=== PATIENT | female | born 1955 | race Caucasian/White ===

== ENCOUNTER 2024-04-29 20:47 | Emergency (ER) | payer OTHER ==
--- OUTSIDE RECORDS SUMMARY | 2024-04-29 20:54 | XMS REPORT | Continuity of Care Document ---
Author Name Unknown Address [address] [facility] [address] [place] [address] [facility] [address] [facility] 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 Role Phone Savannah Webster Primary Care Physician [phone] LUZ MARINA DALY Attending Clinician Unava Vivek Moss MD Attending Clinician [phone] RICHARD JOHNSON Attending Clinician Unavailable RICHARD JOHNSON Attending Clinician Unavailable RIC PADRON Attending Clinician Unavailable RIC PADRON Attending Clinician Unavailable Pedro Caceres DO Attending Clinician [phone] Richadr Johnson DO Attending Clinician [phone] Aletha Pryor MD Attending Clinician [phone] Doctor Unassigned, [place] Attending Clinician U navailkimmie Sampson RTDorita C Attending Clinician Unavailab rizwana Therapist, [facility] Attending Clinician Sofie Cassius Angel MD Attending Clinician + [phone] CASSIUS CHAU Attending Clinician UnavailCHANDRIKA Solis Attending Clinician Unava Chandrika Dawn MD Attending Clinician [phone] Cary Villalobos RN Attending Clinician Unavailab le Only, Ang Db Test Attending Clinician UnavailJuliana Benedict Attending Clinician [phone] TRAVIS FREEDMAN III Attending Clinician UnavailAnni Butler MD Attending Clinician [phone] ANNI JEROME Attending Clinician Unavailable Nurse, [facility] Pob Immunization Attending Clinician Unavailable Jack Naqvi DO Attending Clinician Only, Adc Test Attending Clinician Unavailable Ivone Fowler Attending Clinician Unavailable RADHA PALMA Attending Clinician Unavailable LUZ MARINA DALY Admitting Clinician RIC Parmar Admitting Clinician Unavailable RICHARD JOHNSON Admitting Clinician Unavailable Payers Payer Name Policy Type Policy Number Effective Date Expirati on Date Source MEDICARE PART A \\T\\ [id number] 2020 00:00:00 Problems Condition Name Condition Details Condition Category Status Onset Date Resolution Date Last Treatment Date Treating Clinician Comments Source 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 2- 00:00: 00 [facility] Cough, unspecifie d type Cough, unspecifie d type Disease Active 1 00:00: 00 [facility] No known active problems No known active problems Disease [facility] Allergies, Adverse Reactions, Alerts Allergy Name Allergy Type Status Severity Reaction(s) Onset Date Inactive Date Treating Clinician Comments Source NO KNOWN ALLERGIE S Drug Class Active [facility] Social History Social Habit Start Date Stop Date Quantity Comments Source History of tobacco use 1971 00:00:00 Cigarette Smoker [facility] Gender identity [facility] Sexual orientation [facility] Alcohol intake 2023-10-17 00:00:00 2023-10-17 00:00:00 .29 /d [facility] History of Social function 2023-10-16 00:00:00 2023-10-16 00:00:00 [facility] Exposure to SARS-CoV-2 (event) 2022-07-04 00:00:00 2022-07-14 11:29:00 Not sure [facility] Cigarettes smoked current (pack per day) - Reported 2022-07-14 00:00:00 2022-07-14 00:00:00 [facility] Cigarette pack-years 2022-07-14 00:00:00 2022-07-14 00:00:00 [facility] Tobacco use and exposure 2022-07-14 00:00:00 2022-07-14 00:00:00 Smokeless tobacco non-user [facility] Sex Ass[birth year] At 1955 00:00:00 1955 00:00:00 [facility] Smoking Status Start Date Stop Date Source Smokes tobacco daily 2022-07-14 00:00:00 [facility] Medications Ordered Medication Name Filled Medication Name Start Date Stop Date Current Medication? Ordering Clinician Indication Dosage Frequency Signature (SIG) Comments Components Source Celebrex 200 mg capsule 04-12 00:00: 00 Yes 1mg Mulugeta Cortez levothyroxi ne 50 mcg tablet 04-11 00:00: 00 Yes 1mcg Mulugeta Cortez levothyroxi ne 25 mcg tablet 03-01 00:00: 00 Yes 1mcg Mulugeta Cortez levothyroxi ne 50 mcg tablet 02-19 00:00: 00 Yes 1mcg Mulugeta Cortez methocarbam ol 750 mg tablet 01-30 00:00: 00 Yes 1mg Mulugeta Cortez diclofenac 1 % topical gel 01-28 00:00: 00 Yes 1% Mulugeta Cortez diclofenac sodium 75 mg tablet,ellen yed release 01-28 00:00: 00 Yes 1mg Mulugeta Cortez Symbicort 160 mcg-4.5 mcg/actuati on HFA aerosol inhaler 11-07 00:00: 00 Yes 1mcg/ac tuation Mulugeta Cortez amlodipine 10 mg tablet 11-07 00:00: 00 Yes 1mg Mulugeta Cortez metoprolol succinate ER 50 mg tablet,exte nded release 24 hr 11-07 00:00: 00 Yes 1mg Mulugeta Cortez hydroxyzine HCl 25 mg tablet 11-07 00:00: 00 Yes 12mg Mulugeta Cortez azithromyci n 250 mg tablet 11-07 00:00: 00 Yes 1mg Mulugeta Cortez levothyroxi ne 50 mcg tablet 11-07 00:00: 00 Yes 1mcg Mulugeta Cortez Spiriva with HandiHaler 18 mcg and inhalation capsules 11-07 00:00: 00 Yes 1mcg Mulugeta Cortez INHALE 2 PUFFS EVERY 4 TO 6 HOURS NEEDED. 11-07 00:00: 00 Yes [id number] Mulugeta Cortez lactated ringers IV infusion 10-16 15:55: 00 Yes CONTINUOUS PRN, Starting on Sun10/16/23 at 0955, Until Discontinu ed, Routine, Intra-op [facility] tiZANidine 4 mg capsule 10-16 10:29: 09 Yes 4mg Take 1 capsule by mouth in the morning and 1 capsule at noon and 1 capsule in the evening. [facility] gabapentin 300 mg capsule 10-16 10:29: 09 Yes 300mg Take 300 mg by mouth 3 (three) times daily. [facility] HYDROcodone -acetaminop hen 10-325 mg tablet 10-16 10:29: 09 Yes 1{tbl} Take 1 tablet by mouth every 6 (six) hours as needed. [facility] metoprolol succinate XL 25 mg 24 hr tablet 10-16 10:29: 09 Yes 25mg Take 1 tablet by mouth in the morning. [facility] predniSONE 20 mg tablet 09-20 00:00: 00 09-26 05:59 :00 No [id number] 40mg Take 2 tablets by mouth in the morning for 5 days. [facility] TAKE 1 TABLET BY MOUTH DAILY 09-13 00:00: 00 01-06 00:00 :00 No 20 Mluugeta Cortez TAKE 1 TABLET EVERY 8 HOURS NEEDED. 09-13 00:00: 00 01-06 00:00 :00 No 800 Mulugeta Cortez TAKE 1 TABLET DAILY. 09-11 00:00: 00 01-06 00:00 :00 No 50 Mulugeta Cortez TAKE 1 TABLET DAILY. 2022-09 00:00: 00 01-06 00:00 :00 No 25 Mulugeta Cortez TAKE 1 TABLET DAILY. 2022-09 00:00: 00 Yes 25 Mulugeta Cortez TAKE 1 TABLET BY MOUTH AT BEDTIME 2022-09 00:00: 00 Yes 20 Mulugeta Jl Cortez 1 tab daily 2022-09 00:00: 00 Yes 25 Mulugeta Cortez inhale 2 puffs2 times daily 2022-09 00:00: 00 Yes [id number] Mulugeta Cortez 2 puffs every 6 hours as needed 2022-09 00:00: 00 Yes [id number] Mulugeta Cortez inhale capsule 1 daily 2022-09 00:00: 00 Yes 18 Mulugeta Cortez take 1 tablet by mouth every Sunday and 2022-09 00:00: 00 Yes 250 Mulugeta Jl Cortez INHALE 2 PUFFS TWICE DAILY. RINSE MOUTH AFTER USE. 2022-09 00:00: 00 Yes [id number] Mulugeta Cortez TAKE 1 TO 2 TABLETS AT BEDTIME 2022-09 00:00: 00 01-06 00:00 :00 No 25 Mulugetajuan alberto Cortez TAKE 1 TABLET EVERY 8 HOURS NEEDED. 2022-09 00:00: 00 01-06 00:00 :00 No 800 Mulugeta Jl Cortez TAKE ONE TABLETS BY MOUTH EVERY SUNDAY, SUNDAY, AND 2022-09 00:00: 00 01-06 00:00 :00 No 500 Mulugeta Cortez INHALE 2 PUFFS EVERY 4 TO 6 HOURS NEEDED. 2022-09 00:00: 00 01-06 00:00 :00 No [id number] Mulugeta Cortez TAKE 1 TABLET BY MOUTH AT BEDTIME 05-03 00:00: 00 01-06 00:00 :00 No 20 Mulugeta Jl Cortez TAKE 1 TO 2 TABLETS BY MOUTH AT BEDTIME 04-06 00:00: 00 01-06 00:00 :00 No 25 Mulugeta Jl Cortez TAKE 1 TABLET BY MOUTH DAILY 04-05 00:00: 00 01-06 00:00 :00 No 50 Mulugeta Jl Cortez TAKE 1 TABLET BY MOUTH DAILY 04-05 00:00: 00 01-06 00:00 :00 No 10 Mulugeta Jl Cortez TAKE 1 TABLET DAILY. 6-22 00:00: 00 01-06 00:00 :00 No 25 Mulugeta F Diego TAKE 1 TO 2 TABLETS BY MOUTH AT BEDTIME 621 00:00: 00 01-06 00:00 :00 No 25 Mulugeta F Diego TAKE 1 TABLET BY MOUTH AT BEDTIME 16 00:00: 00 01-06 00:00 :00 No 20 Mulugeta F Diego TAKE 1 TABLET BY MOUTH DAILY 02-16 00:00: 00 01-06 00:00 :00 No 10 Mulugeta F Diego TAKE 1 TABLET BY MOUTH DAILY 02-16 00:00: 00 01-06 00:00 :00 No 50 Mulugeta F Diego tiotropium 18 mcg inhalation 02-08 00:00: 00 Yes [id number] 18ug Inhale 1 capsule in the morning. [facility] budesonide- formoteroL (SYMBICORT) 160-4.5 mcg/actuati on inhaler 02-05 00:00: 00 Yes [id number] 2{puff} Inhale 2 Puffs in the morning and 2 Puffs in the evening. [facility] TAKE 1 CAPSULE BY MOUTH ONCE DAILY 5-31 00:00: 00 01-06 00:00 :00 No 10 Mulugeta Jl Cortez TAKE 1 TO 2 TABLETS AT BEDTIME 12-20 00:00: 00 01-06 00:00 :00 No 25 Mulugeta Jl Cortez TAKE 1 TABLET AT BEDTIME. 12-20 00:00: 00 01-06 00:00 :00 No 20 Mulugeta F Diego TAKE 1 CAPSULE BY MOUTH EVERY MORNING BEFORE BREAKFAST ON EMPTY STOMACH 19 00:00: 00 01-06 00:00 :00 No 13 Mulugeta F Diego albuterol (PROAIR HFA) 90 mcg/actuati on inhaler 18 00:00: 00 Yes [id number] INHALE 2 PUFFS BY MOUTH EVERY 6 (SIX) HOURS NEEDED FOR WHEEZING OR SHORTNESS OF BREATH. [facility] TAKE 1 TABLET BY MOUTH DAILY 4-14 00:00: 00 01-06 00:00 :00 No 10 uMlugeta Cortez TAKE 1 TABLET AT BEDTIME. 3-07 00:00: 00 01-06 00:00 :00 No 20 Mulugetajuan alberto Cortez TAKE 1 TO 2 TABLETS AT BEDTIME 3-07 00:00: 00 01-06 00:00 :00 No 25 Mulugetajuan alberto Cortez TAKE 1 TABLET DAILY. 3-07 00:00: 00 01-06 00:00 :00 No 50 Mulugeta Cortez TAKE 1 TABLET DAILY. 2- 00:00: 00 01-06 00:00 :00 No 10 Mulugeta Cortez TAKE 1 TABLET TWICE DAILY. 2- 00:00: 00 01-06 00:00 :00 No 50 Mulugeta Cortez TAKE 3 CAPSULES AT BEDTIME. 2- 00:00: 00 01-06 00:00 :00 No 20 Mulugetajuan alberto Cortez TAKE 1 TABLET TWICE DAILY. 2021-09 00:00: 00 01-06 00:00 :00 No 25 Mulugeta Cortez TAKE 1 CAPSULE EVERY MORNING. 2021-09 00:00: 00 01-06 00:00 :00 No 20 Mulugeta Cortez TAKE 1 TABLET DAILY. 2021-09 00:00: 00 01-06 00:00 :00 No 5 Mulugeta Cortez sodium chloride (HYPER-LATRICE) 3.5 % Nebu 2021-09 00:00: 00 Yes [id number] 4mL Inhale 4 mL 2 (two) times daily. [facility] arformotero L (BROVANA) 15 mcg/2 mL nebulizer solution 2021-09 00:00: 00 Yes [id number] 15ug Use 2 mL as directed in the morning and 2 mL in the evening. [facility] budesonide (PULMICORT) 0.25 mg/2 mL nebulizer solution 2021-09 00:00: 00 Yes [id number] .25mg Inhale 2 mL in the morning and 2 mL in the evening. [facility] ipratropium -albuteroL 0.5 mg-3 mg(2.5 mg base)/3 mL nebulizer solution 2021-09 00:00: 00 02-08 00:00 :00 No [id number] 3mL Inhale 3 mL 4 (four) times daily. [facility] AZITHROMYCI N 250 mg tablet 2021-09 00:00: 00 Yes [id number] TAKE 1 TABLET BY MOUTH ON SUNDAY, SUNDAY AND SUNDAY [facility] losartan 25 mg tablet 02-23 00:00: 00 Yes 1mg Mulugeta Cortez metoprolol tartrate 25 mg tablet 02-23 00:00: 00 Yes 1mg Mulugeta Cortez cyclobenzap rine 5 mg tablet 02-23 00:00: 00 Yes 1mg Mulugeta Cortez Celebrex 200 mg capsule 02-23 00:00: 00 Yes 1mg Mulugeta Cortez Dose Unknown 02-23 00:00: 00 Yes Mulugeta Cortez Dose Unknown 02-23 00:00: 00 Yes Mulugeta Cortez Dose Unknown 02-23 00:00: 00 Yes Mulugeta Cortez Dose Unknown 02-23 00:00: 00 Yes Mulugeta Cortez Dose Unknown 6-14 00:00: 00 Yes Mulugeta Cortez tiZANidine 4 mg capsule 01-12 10:20: 49 Yes 4mg Take 4 mg by mouth 3 (three) times daily. [facility] HYDROcodone -acetaminop hen 10-325 mg tablet 01-12 10:20: 49 Yes 1{tbl} Take 1 tablet by mouth every 6 (six) hours as needed. [facility] metoprolol succinate XL 25 mg 24 hr tablet 01-12 10:20: 49 Yes 25mg Take 25 mg by mouth daily. [facility] sodium chloride (HYPER-LATRICE) 3.5 % Nebu 01-12 00:00: 00 Yes [id number] 4mL Inhale 4 mL 2 (two) times daily. [facility] albuterol 2.5 mg /3 mL (0.083 %) nebulizer solution 5-12 00:00: 00 Yes [id number] 2.5mg Inhale 3 mL 2 (two) times daily. [facility] TAKE 1 TABLET BY MOUTH EVERY 6 HOURS NEEDED FOR PAIN 505 00:00: 00 Yes Mulugeta Cortez tiotropium 18 mcg inhalation - 00:00: 00 02-08 00:00 :00 No [id number] 18ug Inhale 1 capsule daily. [facility] albuterol (PROAIR HFA) 90 mcg/actuati on inhaler 12-05 00:00: 00 12-19 00:00 :00 No [id number] 2{puff} Inhale 2 Puffs every 6 (six) hours as needed for Wheezing or Shortness of Breath. [facility] budesonide- formoteroL 160-4.5 mcg/actuati on inhaler 12-05 00:00: 00 06-23 00:00 :00 No [id number] 2{puff} Inhale 2 Puffs 2 (two) times daily. [facility] gabapentin 300 mg capsule 3-02 14:35: 52 Yes 300mg Take 300 mg by mouth 3 (three) times daily. [facility] benzonatate (TESSALON PERLES) 100 mg capsule 2-03 00:00: 00 Yes [id number] 100mg Take 1 capsule by mouth 3 (three) times daily as needed for Cough. [facility] azithromyci n 250 mg tablet 2020-09 0- 00:00: 00 06-22 00:00 :00 No [id number] 250mg Take 1 tablet by mouth every Sunday, Sunday and Sunday. Take 500 mg day 1, then 250 mg days 2 to 5. [facility] losartan 25 mg tablet 7- 00:00: 00 Yes 1mg Mulugeta Cortez prednisone 20 mg tablet 03-08 00:00: 00 Yes 2mg Mulugeta Cortez metoprolol tartrate 25 mg tablet 03-08 00:00: 00 Yes 1mg Mulugeta Cortez amoxicillin 875 mg-potassiu poornima clavulanate 125 mg tablet 03-08 00:00: 00 Yes 1mg Mulugeta Cortez Dose Unknown 03-08 00:00: 00 Yes Mulugeta Cortez metoprolol tartrate 25 mg tablet 12-10 00:00: 00 Yes 1mg Mulugeta Cortez prednisone 20 mg tablet 2019-09 00:00: 00 Yes 2mg Mulugeta Cortez Zithromax 250 mg tablet 2019-09 00:00: 00 Yes mg Mulugeta Cortez Dose Unknown 2019-09 00:00: 00 Yes Mulugeta Cortez Symbicort 160 mcg-4.5 mcg/actuati on HFA aerosol inhaler 2019-09 0 00:00: 00 Yes 2mcg/ac tuation Mulugeta Cortez ProAir HFA 90 mcg/actuati on aerosol inhaler 2019-09 0 00:00: 00 Yes 2mcg/ac tuation Mulugeta Cortez losartan 50 mg tablet 2019-09 0 00:00: 00 Yes 1mg Mulugeta Cortez prednisone 50 mg tablet 2019-09 0 00:00: 00 Yes 1mg Mulugeta Cortez hydrochloro thiazide 12.5 mg tablet 2019-09 0 00:00: 00 Yes 1mg Mulugeta Cortez metoprolol tartrate 25 mg tablet 2019-09 0 00:00: 00 Yes 1mg Mulugeta Cortez ondansetron 8 mg disintegrat ing tablet 04-30 00:00: 00 Yes 1mg Mulugeta Cortez Symbicort 160 mcg-4.5 mcg/actuati on HFA aerosol inhaler 8 00:00: 00 Yes 2mcg/ac tuation Mulugeta Cortez ProAir HFA 90 mcg/actuati on aerosol inhaler 8 00:00: 00 Yes 2mcg/ac tuation Mulugeta Cortez Symbicort 160 mcg-4.5 mcg/actuati on HFA aerosol inhaler 2020-0 4-18 00:00: 00 Yes 2mcg/ac tuation Mulugeta Cortez ProAir HFA 90 mcg/actuati on aerosol inhaler 0 4-18 00:00: 00 Yes 2mcg/ac tuation Mulugeta Cortez losartan 50 mg tablet 0 4-18 00:00: 00 Yes 1mg Mulugeta Cortez metoprolol tartrate 25 mg tablet 2019-0 4-18 00:00: 00 Yes 1mg Mulugeta Cortez Symbicort 160 mcg-4.5 mcg/actuati on HFA aerosol inhaler 0 2-19 00:00: 00 Yes 2mcg/ac tuation Mulugeta Cortez ProAir HFA 90 mcg/actuati on aerosol inhaler 0 2-19 00:00: 00 Yes 2mcg/ac nathalyation Mulugeta Cortez prednisone 50 mg tablet 0 2-19 00:00: 00 Yes 1mg Mulugeta Cortez metoprolol tartrate 25 mg tablet 0 2-18 00:00: 00 Yes 1mg Mulugeta Cortez alprazolam 0.25 mg tablet 0 2-18 00:00: 00 Yes 1mg Mulugeta Cortez tizanidine 4 mg tablet 0 2-18 00:00: 00 Yes 1mg Mulugeta Cortez hydrocodone 10 mg-acetamin ophen 325 mg tablet 0 2-18 00:00: 00 Yes 1mg Mulugeta Cortez Immunizations Ordered Immunization Name Filled Immunization Name Date Status Comments Source Influenza Virus Vaccine,quad Im,preserve Free 2022-07-14 00:00:00 Completed [facility] Influenza Virus Vaccine,quad Im,preserve Free 2022-07-14 00:00:00 Completed [facility] Influenza Virus Vaccine,quad Im,preserve Free + 2022-07-14 00:00:00 Completed [facility] Influenza Virus Vaccine,quad Im,preserve Free 2022-07-14 00:00:00 Completed [facility] Influenza Virus Vaccine,quad Im,preserve Free 2022-07-14 00:00:00 Completed [facility] Influenza Virus Vaccine,quad Im,preserve Free 2022-07-14 00:00:00 Completed [facility] Influenza Virus Vaccine,quad Im,preserve Free + 2022-07-14 00:00:00 Completed [facility] Influenza Virus Vaccine,quad Im,preserve Free 65+ 2022-07-14 00:00:00 Completed [facility] Influenza Virus Vaccine,quad Im,preserve Free 65+ 2022-07-14 00:00:00 Completed [facility] Influenza Virus Vaccine,quad Im,preserve Free 65+ (FLUAD) 2022-07-14 00:00:00 Completed [facility] Influenza Virus Vaccine,quad Im,preserve Free 65+ (FLUAD) 2022-07-14 00:00:00 Completed [facility] SARS-COV-2 COVID-19 MODERNA 0.25ML BOOSTER VACCINE 2021-10-03 00:00:00 Completed [facility] SARS-COV-2 COVID-19 MODERNA 0.25ML BOOSTER VACCINE 2021-10-03 00:00:00 Completed [facility] SARS-COV-2 COVID-19 MODERNA 0.25ML BOOSTER VACCINE 2021-10-03 00:00:00 Completed [facility] SARS-COV-2 COVID-19 MODERNA 0.25ML BOOSTER VACCINE 2021-10-03 00:00:00 Completed [facility] SARS-COV-2 COVID-19 MODERNA 0.25ML BOOSTER VACCINE 2021-10-03 00:00:00 Completed [facility] SARS-COV-2 COVID-19 MODERNA 0.25ML BOOSTER VACCINE 2021-10-03 00:00:00 Completed [facility] SARS-COV-2 COVID-19 MODERNA 0.25ML BOOSTER VACCINE 2021-10-03 00:00:00 Completed [facility] SARS-COV-2 COVID-19 MODERNA 0.25ML BOOSTER VACCINE 2021-10-03 00:00:00 Completed [facility] SARS-COV-2 COVID-19 MODERNA 0.25ML BOOSTER VACCINE 2021-10-03 00:00:00 Completed [facility] SARS-COV-2 COVID-19 MODERNA 0.25ML BOOSTER VACCINE 2021-10-03 00:00:00 Completed [facility] SARS-COV-2 COVID-19 MODERNA 0.25ML BOOSTER VACCINE 2021-10-03 00:00:00 Completed [facility] SARS-COV-2 COVID-19 MODERNA 0.25ML BOOSTER VACCINE 2021-10-03 00:00:00 Completed [facility] SARS-COV-2 COVID-19 MODERNA 0.25ML BOOSTER VACCINE 2021-10-03 00:00:00 Completed [facility] SARS-COV-2 COVID-19 MODERNA 0.25ML BOOSTER VACCINE 2021-10-03 00:00:00 Completed [facility] SARS-COV-2 COVID-19 MODERNA 0.25ML BOOSTER VACCINE 2021-10-03 00:00:00 Completed [facility] SARS-COV-2 COVID-19 MODERNA 0.25ML BOOSTER VACCINE 2021-10-03 00:00:00 Completed [facility] SARS-COV-2 COVID-19 MODERNA 0.25ML BOOSTER VACCINE 2021-10-03 00:00:00 Completed [facility] SARS-COV-2 COVID-19 MODERNA 0.25ML BOOSTER VACCINE 2021-10-03 00:00:00 Completed [facility] SARS-COV-2 COVID-19 MODERNA 0.25ML BOOSTER VACCINE 2021-10-03 00:00:00 Completed [facility] SARS-COV-2 COVID-19 MODERNA 0.25ML BOOSTER VACCINE 2021-10-03 00:00:00 Completed [facility] SARS-COV-2 COVID-19 MODERNA 0.25ML BOOSTER VACCINE 2021-10-03 00:00:00 Completed [facility] Influenza Virus Vaccine Quad IM, Preserv and ABX Free 6 MO-64 YRS 2021-08-04 00:00:00 Completed [facility] Influenza Virus Vaccine Quad IM, Preserv and ABX Free 6 MO-64 YRS 2021-08-04 00:00:00 Completed [facility] Influenza Virus Vaccine Quad IM, Preserv and ABX Free 6 MO-64 YRS 2021-08-04 00:00:00 Completed [facility] Influenza Virus Vaccine Quad IM, Preserv and ABX Free 6 MO-64 YRS 2021-08-04 00:00:00 Completed [facility] Influenza Virus Vaccine Quad IM, Preserv and ABX Free 6 MO-64 YRS 2021-08-04 00:00:00 Completed [facility] Influenza Virus Vaccine Quad IM, Preserv and ABX Free 6 MO-64 YRS 2021-08-04 00:00:00 Completed [facility] Influenza Virus Vaccine Quad IM, Preserv and ABX Free 6 MO-64 YRS 2021-08-04 00:00:00 Completed [facility] Influenza Virus Vaccine Quad IM, Preserv and ABX Free 6 MO-64 YRS 2021-08-04 00:00:00 Completed [facility] Influenza Virus Vaccine Quad IM, Preserv and ABX Free 6 MO-64 YRS 2021-08-04 00:00:00 Completed [facility] Influenza Virus Vaccine Quad IM, Preserv and ABX Free 6 MO-64 YRS 2021-08-04 00:00:00 Completed [facility] Influenza Virus Vaccine Quad IM, Preserv and ABX Free 6 MO-64 YRS (FLUCELVAX) 2021-08-04 00:00:00 Completed [facility] Influenza Virus Vaccine Quad IM, Preserv and ABX Free 6 MO-64 YRS (FLUCELVAX) 2021-08-04 00:00:00 Completed [facility] Influenza Virus Vaccine Quad IM, Preserv and ABX Free 6 MO-64 YRS 2021-08-04 00:00:00 Completed [facility] Influenza Virus Vaccine Quad IM, Preserv and ABX Free 6 MO-64 YRS 2021-08-04 00:00:00 Completed [facility] Influenza Virus Vaccine Quad IM, Preserv and ABX Free 6 MO-64 YRS 2021-08-04 00:00:00 Completed [facility] Influenza Virus Vaccine Quad IM, Preserv and ABX Free 6 MO-64 YRS 2021-08-04 00:00:00 Completed [facility] Influenza Virus Vaccine Quad IM, Preserv and ABX Free 6 MO-64 YRS 2021-08-04 00:00:00 Completed [facility] Influenza Virus Vaccine Quad IM, Preserv and ABX Free 6 MO-64 YRS 2021-08-04 00:00:00 Completed [facility] Influenza Virus Vaccine Quad IM, Preserv and ABX Free 6 MO-64 YRS 2021-08-04 00:00:00 Completed [facility] Influenza Virus Vaccine Quad IM, Preserv and ABX Free 6 MO-64 YRS 2021-08-04 00:00:00 Completed [facility] Influenza Virus Vaccine Quad IM, Preserv and ABX Free 6 MO-64 YRS 2021-08-04 00:00:00 Completed [facility] SARS-COV-2 COVID-19 MODERNA 12+ YRS VACCINE 2021-01-05 00:00:00 Completed [facility] SARS-COV-2 COVID-19 MODERNA 12+ YRS VACCINE 2021-01-05 00:00:00 Completed [facility] SARS-COV-2 COVID-19 MODERNA 12+ YRS VACCINE 2021-01-05 00:00:00 Completed [facility] SARS-COV-2 COVID-19 MODERNA 12+ YRS VACCINE 2021-01-05 00:00:00 Completed [facility] SARS-COV-2 COVID-19 MODERNA 12+ YRS VACCINE 2021-01-05 00:00:00 Completed [facility] SARS-COV-2 COVID-19 MODERNA 12+ YRS VACCINE 2021-01-05 00:00:00 Completed [facility] SARS-COV-2 COVID-19 MODERNA 12+ YRS VACCINE 2021-01-05 00:00:00 Completed [facility] SARS-COV-2 COVID-19 MODERNA 12+ YRS VACCINE 2021-01-05 00:00:00 Completed [facility] SARS-COV-2 COVID-19 MODERNA 12+ YRS VACCINE 2021-01-05 00:00:00 Completed [facility] SARS-COV-2 COVID-19 MODERNA 12+ YRS VACCINE 2021-01-05 00:00:00 Completed [facility] SARS-COV-2 COVID-19 MODERNA 12+ YRS VACCINE 2021-01-05 00:00:00 Completed [facility] SARS-COV-2 COVID-19 MODERNA 12+ YRS VACCINE 2021-01-05 00:00:00 Completed [facility] SARS-COV-2 COVID-19 MODERNA VACCINE 2021-01-05 00:00:00 Completed [facility] SARS-COV-2 COVID-19 MODERNA VACCINE 2021-01-05 00:00:00 Completed [facility] SARS-COV-2 COVID-19 MODERNA VACCINE 2021-01-05 00:00:00 Completed [facility] SARS-COV-2 COVID-19 MODERNA 12+ YRS VACCINE 2021-01-05 00:00:00 Completed [facility] SARS-COV-2 COVID-19 MODERNA 12+ YRS VACCINE 2021-01-05 00:00:00 Completed [facility] SARS-COV-2 COVID-19 MODERNA 12+ YRS VACCINE 2021-01-05 00:00:00 Completed [facility] SARS-COV-2 COVID-19 MODERNA 12+ YRS VACCINE 2021-01-05 00:00:00 Completed [facility] SARS-COV-2 COVID-19 MODERNA 12+ YRS VACCINE 2021-01-05 00:00:00 Completed [facility] SARS-COV-2 COVID-19 MODERNA 12+ YRS VACCINE 2021-01-05 00:00:00 Completed [facility] SARS-COV-2 COVID-19 MODERNA 12+ YRS VACCINE 2020-12-08 00:00:00 Completed [facility] SARS-COV-2 COVID-19 MODERNA 12+ YRS VACCINE 2020-12-08 00:00:00 Completed [facility] SARS-COV-2 COVID-19 MODERNA 12+ YRS VACCINE 2020-12-08 00:00:00 Completed [facility] SARS-COV-2 COVID-19 MODERNA 12+ YRS VACCINE 2020-12-08 00:00:00 Completed [facility] SARS-COV-2 COVID-19 MODERNA 12+ YRS VACCINE 2020-12-08 00:00:00 Completed [facility] SARS-COV-2 COVID-19 MODERNA 12+ YRS VACCINE 2020-12-08 00:00:00 Completed [facility] SARS-COV-2 COVID-19 MODERNA 12+ YRS VACCINE 2020-12-08 00:00:00 Completed [facility] SARS-COV-2 COVID-19 MODERNA 12+ YRS VACCINE 2020-12-08 00:00:00 Completed [facility] SARS-COV-2 COVID-19 MODERNA 12+ YRS VACCINE 2020-12-08 00:00:00 Completed [facility] SARS-COV-2 COVID-19 MODERNA 12+ YRS VACCINE 2020-12-08 00:00:00 Completed [facility] SARS-COV-2 COVID-19 MODERNA 12+ YRS VACCINE 2020-12-08 00:00:00 [facility] [facility] SARS-COV-2 COVID-19 MODERNA 12+ YRS VACCINE 2020-12-08 00:00:00 Completed [facility] SARS-COV-2 COVID-19 MODERNA VACCINE 2020-12-08 00:00:00 Completed [facility] SARS-COV-2 COVID-19 MODERNA VACCINE 2020-12-08 00:00:00 Completed [facility] SARS-COV-2 COVID-19 MODERNA VACCINE 2020-12-08 00:00:00 Completed [facility] SARS-COV-2 COVID-19 MODERNA 12+ YRS VACCINE 2020-12-08 00:00:00 Completed [facility] SARS-COV-2 COVID-19 MODERNA 12+ YRS VACCINE 2020-12-08 00:00:00 Completed [facility] SARS-COV-2 COVID-19 MODERNA 12+ YRS VACCINE 2020-12-08 00:00:00 Completed [facility] SARS-COV-2 COVID-19 MODERNA 12+ YRS VACCINE 2020-12-08 00:00:00 Completed [facility] SARS-COV-2 COVID-19 MODERNA 12+ YRS VACCINE 2020-12-08 00:00:00 Completed [facility] SARS-COV-2 COVID-19 MODERNA 12+ YRS VACCINE 2020-12-08 00:00:00 Completed [facility] Influenza, seasonal, inj Influenza, seasonal, inj 2019-10-22 00:00:00 Completed [facility] Influenza, seasonal, inj Influenza, seasonal, inj 2019-10-22 00:00:00 Completed [facility] SARS-COV-2 COVID-19 MODERNA 12+ YRS VACCINE Unknown Completed [facility] SARS-COV-2 COVID-19 MODERNA 12+ YRS VACCINE Unknown Completed [facility] Influenza Virus Vaccine Quad IM, Preserv and ABX Free 6 MO-64 YRS (FLUCELVAX) Unknown Completed [facility] SARS-COV-2 COVID-19 MODERNA 0.25ML BOOSTER VACCINE Unknown Completed [facility] Influenza Virus Vaccine,quad Im,preserve Free 65+ (FLUAD) Unknown Completed [facility] SARS-COV-2 COVID-19 MODERNA 12+ YRS VACCINE Unknown Completed [facility] SARS-COV-2 COVID-19 MODERNA 12+ YRS VACCINE Unknown Completed [facility] Influenza Virus Vaccine Quad IM, Preserv and ABX Free 6 MO-64 YRS (FLUCELVAX) Unknown Completed [facility] SARS-COV-2 COVID-19 MODERNA 0.25ML BOOSTER VACCINE Unknown Completed [facility] Influenza Virus Vaccine,quad Im,preserve Free 65+ (FLUAD) Unknown Completed [facility] SARS-COV-2 COVID-19 MODERNA 12+ YRS VACCINE Unknown Completed [facility] SARS-COV-2 COVID-19 MODERNA 12+ YRS VACCINE Unknown Completed [facility] Influenza Virus Vaccine Quad IM, Preserv and ABX Free 6 MO-64 YRS (FLUCELVAX) Unknown Completed [facility] SARS-COV-2 COVID-19 MODERNA 0.25ML BOOSTER VACCINE Unknown Completed [facility] Influenza Virus Vaccine,quad Im,preserve Free 65+ (FLUAD) Unknown Completed [facility] SARS-COV-2 COVID-19 MODERNA 12+ YRS VACCINE Unknown Completed [facility] SARS-COV-2 COVID-19 MODERNA 12+ YRS VACCINE Unknown Completed [facility] Influenza Virus Vaccine Quad IM, Preserv and ABX Free 6 MO-64 YRS (FLUCELVAX) Unknown Completed [facility] SARS-COV-2 COVID-19 MODERNA 0.25ML BOOSTER VACCINE Unknown Completed [facility] Influenza Virus Vaccine,quad Im,preserve Free 65+ (FLUAD) Unknown Completed [facility] SARS-COV-2 COVID-19 MODERNA 12+ YRS VACCINE Unknown Completed [facility] SARS-COV-2 COVID-19 MODERNA 12+ YRS VACCINE Unknown Completed [facility] Influenza Virus Vaccine Quad IM, Preserv and ABX Free 6 MO-64 YRS (FLUCELVAX) Unknown Completed [facility] SARS-COV-2 COVID-19 MODERNA 0.25ML BOOSTER VACCINE Unknown Completed [facility] Influenza Virus Vaccine,quad Im,preserve Free 65+ (FLUAD) Unknown Completed [facility] Influenza Virus Vaccine,quad Im,preserve Free 65+ (FLUAD) Unknown Completed [facility] SARS-COV-2 COVID-19 MODERNA 12+ YRS VACCINE Unknown Completed [facility] SARS-COV-2 COVID-19 MODERNA 12+ YRS VACCINE Unknown Completed [facility] Influenza Virus Vaccine Quad IM, Preserv and ABX Free 6 MO-64 YRS (FLUCELVAX) Unknown Completed [facility] SARS-COV-2 COVID-19 MODERNA 0.25ML BOOSTER VACCINE Unknown Completed [facility] Influenza Virus Vaccine,quad Im,preserve Free 65+ (FLUAD) Unknown Completed [facility] Influenza Virus Vaccine,quad Im,preserve Free 65+ (FLUAD) Unknown Completed [facility] SARS-COV-2 COVID-19 MODERNA 12+ YRS VACCINE Unknown Completed [facility] SARS-COV-2 COVID-19 MODERNA 12+ YRS VACCINE Unknown Completed [facility] Influenza Virus Vaccine Quad IM, Preserv and ABX Free 6 MO-64 YRS (FLUCELVAX) Unknown Completed [facility] SARS-COV-2 COVID-19 MODERNA 0.25ML BOOSTER VACCINE Unknown Completed [facility] Influenza Virus Vaccine,quad Im,preserve Free 65+ (FLUAD) Unknown Completed [facility] Influenza Virus Vaccine,quad Im,preserve Free 65+ (FLUAD) Unknown Completed [facility] SARS-COV-2 COVID-19 MODERNA 12+ YRS VACCINE Unknown Completed [facility] SARS-COV-2 COVID-19 MODERNA 12+ YRS VACCINE Unknown Completed [facility] Influenza Virus Vaccine Quad IM, Preserv and ABX Free 6 MO-64 YRS (FLUCELVAX) Unknown Completed [facility] SARS-COV-2 COVID-19 MODERNA 0.25ML BOOSTER VACCINE Unknown Completed [facility] Influenza Virus Vaccine,quad Im,preserve Free 65+ (FLUAD) Unknown Completed [facility] Influenza Virus Vaccine,quad Im,preserve Free 65+ (FLUAD) Unknown Completed [facility] SARS-COV-2 COVID-19 MODERNA 12+ YRS VACCINE Unknown Completed [facility] SARS-COV-2 COVID-19 MODERNA 12+ YRS VACCINE Unknown Completed [facility] Influenza Virus Vaccine Quad IM, Preserv and ABX Free 6 MO-64 YRS (FLUCELVAX) Unknown Completed [facility] SARS-COV-2 COVID-19 MODERNA 0.25ML BOOSTER VACCINE Unknown Completed [facility] Influenza Virus Vaccine,quad Im,preserve Free 65+ (FLUAD) Unknown Completed [facility] Influenza Virus Vaccine,quad Im,preserve Free 65+ (FLUAD) Unknown Completed [facility] SARS-COV-2 COVID-19 MODERNA 12+ YRS VACCINE Unknown Completed [facility] SARS-COV-2 COVID-19 MODERNA 12+ YRS VACCINE Unknown Completed [facility] Influenza Virus Vaccine Quad IM, Preserv and ABX Free 6 MO-64 YRS (FLUCELVAX) Unknown Completed [facility] SARS-COV-2 COVID-19 MODERNA 0.25ML BOOSTER VACCINE Unknown Completed [facility] Influenza Virus Vaccine,quad Im,preserve Free 65+ (FLUAD) Unknown Completed [facility] Influenza Virus Vaccine,quad Im,preserve Free 65+ (FLUAD) Unknown Completed [facility] SARS-COV-2 COVID-19 MODERNA 12+ YRS VACCINE Unknown Completed [facility] SARS-COV-2 COVID-19 MODERNA 12+ YRS VACCINE Unknown Completed [facility] Influenza Virus Vaccine Quad IM, Preserv and ABX Free 6 MO-64 YRS (FLUCELVAX) Unknown Completed [facility] SARS-COV-2 COVID-19 MODERNA 0.25ML BOOSTER VACCINE Unknown Completed [facility] Influenza Virus Vaccine,quad Im,preserve Free 65+ (FLUAD) Unknown Completed [facility] Influenza Virus Vaccine,quad Im,preserve Free 65+ (FLUAD) Unknown Completed [facility] SARS-COV-2 COVID-19 MODERNA 12+ YRS VACCINE Unknown Completed [facility] SARS-COV-2 COVID-19 MODERNA 12+ YRS VACCINE Unknown Completed [facility] Influenza Virus Vaccine Quad IM, Preserv and ABX Free 6 MO-64 YRS (FLUCELVAX) Unknown Completed [facility] SARS-COV-2 COVID-19 MODERNA 0.25ML BOOSTER VACCINE Unknown Completed [facility] Influenza Virus Vaccine,quad Im,preserve Free 65+ (FLUAD) Unknown Completed [facility] Influenza Virus Vaccine,quad Im,preserve Free 65+ (FLUAD) Unknown Completed [facility] SARS-COV-2 COVID-19 MODERNA 12+ YRS VACCINE Unknown Completed [facility] SARS-COV-2 COVID-19 MODERNA 12+ YRS VACCINE Unknown Completed [facility] Influenza Virus Vaccine Quad IM, Preserv and ABX Free 6 MO-64 YRS (FLUCELVAX) Unknown Completed [facility] SARS-COV-2 COVID-19 MODERNA 0.25ML BOOSTER VACCINE Unknown Completed [facility] Influenza Virus Vaccine,quad Im,preserve Free 65+ (FLUAD) Unknown Completed [facility] Influenza Virus Vaccine,quad Im,preserve Free 65+ (FLUAD) Unknown Completed [facility] SARS-COV-2 COVID-19 MODERNA 12+ YRS VACCINE Unknown Completed [facility] SARS-COV-2 COVID-19 MODERNA 12+ YRS VACCINE Unknown Completed [facility] Influenza Virus Vaccine Quad IM, Preserv and ABX Free 6 MO-64 YRS (FLUCELVAX) Unknown Completed [facility] SARS-COV-2 COVID-19 MODERNA 0.25ML BOOSTER VACCINE Unknown Completed [facility] Influenza Virus Vaccine,quad Im,preserve Free 65+ (FLUAD) Unknown Completed [facility] Influenza Virus Vaccine,quad Im,preserve Free 65+ (FLUAD) Unknown Completed [facility] SARS-COV-2 COVID-19 MODERNA 12+ YRS VACCINE Unknown Completed [facility] SARS-COV-2 COVID-19 MODERNA 12+ YRS VACCINE Unknown Completed [facility] Influenza Virus Vaccine Quad IM, Preserv and ABX Free 6 MO-64 YRS (FLUCELVAX) Unknown Completed [facility] SARS-COV-2 COVID-19 MODERNA 0.25ML BOOSTER VACCINE Unknown Completed [facility] Influenza Virus Vaccine,quad Im,preserve Free 65+ (FLUAD) Unknown Completed [facility] Influenza Virus Vaccine,quad Im,preserve Free 65+ (FLUAD) Unknown Completed [facility] Vital Signs Vital Name Observation Time Observation Value Comments S ource Heart rate 2023-10-16 16:16:00 70 /min Un[facility] Oxygen saturation in Arterial blood by Pulse oximetry 2023-10-16 16:16:00 97 /min [facility] Systolic blood pressure 2023-10-16 16:01:00 91 mm[Hg] [facility] Diastolic blood pressure 2023-10-16 16:01:00 70 mm[Hg] [facility] Respiratory rate 2023-10-16 16:01:00 17 /min [facility] Body temperature 2023-10-16 15:46:00 35.94 N[facility] Body height 2023-10-16 14:07:00 165.1 cm [facility] Body weight 2023-10-16 14:07:00 57.6 kg [facility] BMI 2023-10-16 14:07:00 21.13 kg/m2 [facility] Systolic blood pressure 2023-10-16 16:01:00 91 mm[Hg] [facility] Diastolic blood pressure 2023-10-16 16:01:00 70 mm[Hg] [facility] Heart rate 2023-10-16 16:01:00 76 /min Unive [facility] Respiratory rate 2023-10-16 16:01:00 17 /min [facility] Oxygen saturation in Arterial blood by Pulse oximetry 2023-10-16 16:01:00 97 /min [facility] Body temperature 2023-10-16 15:46:00 35.94 Nory [facility] Body height 2023-10-16 14:07:00 165.1 cm [facility] Body weight 2023-10-16 14:07:00 57.6 kg [facility] BMI 2023-10-16 14:07:00 21.13 kg/m2 [facility] Systolic blood pressure 2023-09-20 16:30:00 107 mm[Hg] [facility] Diastolic blood pressure 2023-09-20 16:30:00 59 mm[Hg] [facility] Heart rate 2023-09-20 16:30:00 80 /[facility] 2023-09-20 16:30:00 18 /min [facility] Body height 2023-09-20 16:30:00 165.1 cm [facility] Body weight 2023-09-20 16:30:00 55.293 kg Univ [facility] BMI 2023-09-20 16:30:00 20.29 kg/m2 [facility] Oxygen saturation in Arterial blood by Pulse oximetry 2023-09-20 16:30:00 91 /min [facility] Systolic blood pressure 2022-07-14 17:36:00 132 mm[Hg] [facility] Diastolic blood pressure 2022-07-14 17:36:00 92 mm[Hg] [facility] Heart rate 2022-07-14 17:36:00 77 /min Unive [facility] Respiratory rate 2022-07-14 17:36:00 19 /min [facility] Body height 2022-07-14 17:36:00 165.1 cm [facility] Body weight 2022-07-14 17:36:00 53.978 kg [facility] BMI 2022-07-14 17:36:00 19.80 kg/m2 [facility] Oxygen saturation in Arterial blood by Pulse oximetry 2022-07-14 17:36:00 96 /min [facility] Systolic blood pressure 2022-01-12 15:27:00 124 mm[Hg] [facility] Diastolic blood pressure 2022-01-12 15:27:00 81 mm[Hg] [facility] Heart rate 2022-01-12 15:27:00 73 /min Unive [facility] Respiratory rate 2022-01-12 15:27:00 19 /min [facility] Body height 2022-01-12 15:27:00 165.1 cm [facility] 2022-01-12 15:27:00 49.261 kg [facility] BMI 2022-01-12 15:27:00 18.07 kg/m2 [facility] Oxygen saturation in Arterial blood by Pulse oximetry 2022-01-12 15:27:00 91 /min [facility] BP Systolic 2024-04-12 14:28:00 115 mm[Hg] Step hen F [facility] BP Diastolic 2024-04-12 14:28:00 80 mm[Hg] Dave phen [facility] Weight Measured 2024-04-12 14:28:00 120.60 pounds [facility]a F [facility] Height Measured 2024-04-12 14:28:00 65.00 inches [facility] F [facility] Body Temperature 2024-04-12 14:28:00 97.00 degrees [facility] F [facility] Heart Rate 2024-04-12 14:28:00 82.00 /min Melodie en F [facility] Respiratory Rate 2024-04-12 14:28:00 16.00 /min [facility]ulugeta F [facility] BP Systolic 2024-02-27 11:19:00 96 mm[Hg] Step hen [facility] BP Diastolic 2024-02-27 11:19:00 65 mm[Hg] Dave phen [facility] Weight Measured 2024-02-27 11:19:00 125.60 pounds Mulugeta F [facility] Height Measured 2024-02-27 11:19:00 65.00 inches [facility]ulugeta F [facility] Body Temperature 2024-02-27 11:19:00 98.20 degrees [facility]a F [facility] Heart Rate 2024-02-27 11:19:00 80.00 /min Melodie en F [facility] Respiratory Rate 2024-02-27 11:19:00 18.00 /min Mulugeta F [facility] BP Systolic 2024-01-29 10:34:00 131 mm[Hg] Step hen [facility] BP Diastolic 2024-01-29 10:34:00 89 mm[Hg] Dave phen [facility] Weight Measured 2024-01-29 10:34:00 122.40 pounds Mulugeta F [facility] Height Measured 2024-01-29 10:34:00 65.00 inches Mulugeta F [facility] Body Temperature 2024-01-29 10:34:00 97.90 degrees Mulugeta F [facility] Heart Rate 2024-01-29 10:34:00 80.00 /min Melodie en F [facility] Respiratory Rate 2024-01-29 10:34:00 17.00 /min [facility]ulugeta F [facility] BP Systolic 2023-11-08 17:43:00 112 mm[Hg] Step hen [facility] BP Diastolic 2023-11-08 17:43:00 74 mm[Hg] Dave phen [facility] Weight Measured 2023-11-08 17:43:00 126.60 pounds Mulugeta F [facility] Height Measured 2023-11-08 17:43:00 65.00 inches Mulugeta F [facility] Body Temperature 2023-11-08 17:43:00 98.10 degrees Mulugeta F [facility] Heart Rate 2023-11-08 17:43:00 92.00 /min Melodie en F [facility] Respiratory Rate 2023-11-08 17:43:00 19.00 /min [facility]a F [facility] BP Systolic 2023-09-11 14:00:00 120 mm[Hg] Step hen [facility] BP Diastolic 2023-09-11 14:00:00 85 mm[Hg] Dave phen [facility] Weight Measured 2023-09-11 14:00:00 122.00 pounds Mulugeta F [facility] Height Measured 2023-09-11 14:00:00 65.00 inches Mulugeta F [facility] Body Temperature 2023-09-11 14:00:00 98.40 degrees Mulugeta F [facility] Heart Rate 2023-09-11 14:00:00 87.00 /min Melodie en F [facility] Respiratory Rate 2023-09-11 14:00:00 Mulugeta F [facility] BP Systolic 2023-09-11 10:42:00 120 mm[Hg] Step hen [facility] BP Diastolic 2023-09-11 10:42:00 85 mm[Hg] Dave phen [facility] Weight Measured 2023-09-11 10:42:00 122.00 pounds Mulugeta F [facility] Height Measured 2023-09-11 10:42:00 65.00 inches Mulugeta F [facility] Body Temperature 2023-09-11 10:42:00 98.40 degrees Mulugeta F [facility] Heart Rate 2023-09-11 10:42:00 87.00 /min Melodie en F [facility] Respiratory Rate 2023-09-11 10:42:00 16.00 /min Mulugeta F [facility] BP Systolic 2023-06-14 14:11:00 100 mm[Hg] Step hen [facility] BP Diastolic 2023-06-14 14:11:00 65 mm[Hg] Dave phen [facility] Weight Measured 2023-06-14 14:11:00 117.40 pounds Mulugeta F [facility] Height Measured 2023-06-14 14:11:00 65.00 inches Mulugeta F [facility] Body Temperature 2023-06-14 14:11:00 98.00 degrees Mulugeta F [facility] Heart Rate 2023-06-14 14:11:00 91.00 /min Melodie en F [facility] Respiratory Rate 2023-06-14 14:11:00 18.00 /min Mulugeta F [facility] BP Systolic 2023-04-05 10:26:00 115 mm[Hg] Step hen F [facility] BP Diastolic 2023-04-05 10:26:00 79 mm[Hg] Dave phen [facility] Weight Measured 2023-04-05 10:26:00 115.00 pounds Mulugeta F [facility] Height Measured 2023-04-05 10:26:00 65.00 inches Mulugeta F [facility] Body Temperature 2023-04-05 10:26:00 98.20 degrees Mulugeta F [facility] Heart Rate 2023-04-05 10:26:00 68.00 /min Melodie en F [facility] Respiratory Rate 2023-04-05 10:26:00 16.00 /min Mulugeta F [facility] BP Systolic 2023-04-04 15:44:00 90 mm[Hg] Step hen [facility] BP Diastolic 2023-04-04 15:44:00 68 mm[Hg] Dave phen [facility] Weight Measured 2023-04-04 15:44:00 115.20 pounds Mulugeta F [facility] Height Measured 2023-04-04 15:44:00 65.00 inches Mulugeta F [facility] Body Temperature 2023-04-04 15:44:00 98.20 degrees Mulugeta F [facility] Heart Rate 2023-04-04 15:44:00 92.00 /min Melodie en [facility] Respiratory Rate 2023-04-04 15:44:00 19.00 /min Mulugeta F [facility] BP Systolic 2023-01-31 15:00:00 97 mm[Hg] Step hen [facility] BP Diastolic 2023-01-31 15:00:00 67 mm[Hg] Dave phen [facility] Weight Measured 2023-01-31 15:00:00 113.80 pounds Mulugeta F [facility] Height Measured 2023-01-31 15:00:00 65.00 inches Mulugeta F [facility] Body Temperature 2023-01-31 15:00:00 98.20 degrees Mulugeta F [facility] Heart Rate 2023-01-31 15:00:00 80.00 /min Melodie en [facility] Respiratory Rate 2023-01-31 15:00:00 16.00 /min Mulugeta F [facility] BP Systolic 2022-12-20 15:33:00 123 mm[Hg] Step hen F [facility] BP Diastolic 2022-12-20 15:33:00 78 mm[Hg] Dave phen [facility] Weight Measured 2022-12-20 15:33:00 113.60 pounds Mulugeta F [facility] Height Measured 2022-12-20 15:33:00 65.00 inches Mulugeta F [facility] Body Temperature 2022-12-20 15:33:00 98.10 degrees Mulugeta F [facility] Heart Rate 2022-12-20 15:33:00 77.00 /min Melodie en [facility] Respiratory Rate 2022-12-20 15:33:00 16.00 /min Mulugeta F [facility] BP Systolic 2022-11-07 11:18:00 115 mm[Hg] Step hen [facility] BP Diastolic 2022-11-07 11:18:00 87 mm[Hg] Dave phen [facility] Weight Measured 2022-11-07 11:18:00 106.80 pounds Mulugeta F [facility] Height Measured 2022-11-07 11:18:00 63.86 inches Mulugeta F [facility] Body Temperature 2022-11-07 11:18:00 98.40 degrees Mulugeta F [facility] Heart Rate 2022-11-07 11:18:00 76.00 /min Melodie en F [facility] Respiratory Rate 2022-11-07 11:18:00 18.00 /min Mulugeta F [facility] Procedures Procedure Date / Time Performed Performing Clinician Source FLEXIBLE BRONCHOSCOPY 2023-10-16 14:48:00 Chema Padron [facility] CONSENT/REFUSAL FOR DIAGNOSIS AND TREATMENT 2023-10-16 13:48:06 Doctor Unassigned, [place] [facility] CONSENT/REFUSAL FOR DIAGNOSIS AND TREATMENT 2023-10-16 13:48:06 Doctor Unassigned, [place] [facility] ASSIGNMENT OF BENEFITS 2023-10-16 13:47:31 Docto r Unassigned, [place] [facility] ASSIGNMENT OF BENEFITS 2023-10-16 13:47:31 Docto r Unassigned, [place] [facility] ENDOSCOPY PROCEDURE DOCUMENTATION 2023-10-16 06:01:00 Doctor Unassigned, [place] [facility] EXTERNAL PROVIDER RECORDS 2023-10-11 06:01:00 Doctor Unassigned, [place] [facility] EXTERNAL PROVIDER RECORDS 2023-10-11 06:01:00 Doctor Unassigned, [place] [facility] FLU VACC(),65+YR,0. 5 ML,IM,ADJUVANTED,QUAD([place] UAD) 2023-09-20 16:31:43 Richard Johnson [facility] CONSENT/REFUSAL FOR DIAGNOSIS AND TREATMENT 2023-09-20 15:29:16 Doctor Unassigned, [place] [facility] DME/SUPPLY JUSTIFICATION 2023-06-28 05:01:00 Doc tor Unassigned, [place] [facility] DME/SUPPLY JUSTIFICATION 2023-05-17 05:01:00 Doc tor Unassigned, [place] [facility] FLU VACC(),65+YR,0. 5 ML,IM,ADJUVANTED,QUAD([place] UAD) 2022-07-14 17:37:48 Richard Johnson [facility] DME/SUPPLY JUSTIFICATION 2022-07-14 06:01:00 Doc tor Unassigned, [place] [facility] DME/SUPPLY JUSTIFICATION 2022-07-04 05:01:00 Doc tor Unassigned, [place] [facility] DME/SUPPLY JUSTIFICATION 2022-06-23 05:01:00 Doc tor Unassigned, [place] [facility] DME/SUPPLY JUSTIFICATION 2022-03-27 05:01:00 Doc tor Unassigned, [place] [facility] Encounters Start Date/Time End Date/Time Encounter Type Admission Type Attending [facility] Facility Care Department Encounter ID Source 2023-09-27 16:11:12 Outpatient R LUZ MARINA DALY [facility] [id number] [facility] 2024-04-12 14:20:50 2024-04-12 14:20:50 Outpatient SFA [facility] [id number] Mulugeta Cortez 2024-04-12 00:00:00 2024-04-12 00:00:00 Outpatient Visit SFA [id number] Mulugeta Cortez 2024-02-27 11:19:04 2024-02-27 11:19:04 Outpatient SFA SFA [id number] Mulugeta Cortez 2024-02-27 00:00:00 2024-02-27 00:00:00 Outpatient Visit SFA [id number] Mulugeta Cortez 2024-01-30 13:00:01 2024-01-30 13:00:01 Outpatient SFA SFA [id number] Mulugeta Cortez 2024-01-29 10:29:07 2024-01-29 10:29:07 Outpatient SFA SFA 28 Mulugeta Parikh [facility] 2024-01-29 00:00:00 2024-01-29 00:00:00 Outpatient Visit SFA [id number] Mulugeta Parikh [facility] 2023-12-07 00:00:00 2023-12-07 00:00:00 Telephone Vivek Key [facility] [id number] [id number] [id number] [id number] [facility] 2023-11-08 17:35:18 2023-11-08 17:35:18 Outpatient SFA SFA [id number] Mulugeta Cortez 2023-10-23 13:20:16 2023-10-23 13:20:16 Outpatient SFA SFA [id number] Mulugeta Cortez 2023-10-16 07:50:00 2023-10-16 10:28:00 [id number] 2023-10-16 07:50:00 2023-10-16 10:28:00 Hospital Encounter Ric Padron [facility] [id number] [id number] [facility] 2023-10-16 09:00:00 2023-10-16 10:02:00 Surgery Ric Padron [facility] [id number] [id number] [id number] [id number] [facility] 2023-10-09 00:00:00 2023-10-09 00:00:00 Case Management Pedro Caceres [facility] [id number] 350.1.13.10 [id number] [id number] [facility] 2023-09-27 00:00:00 2023-09-27 00:00:00 Telephone Richard Johnson [facility] [id number] [id number] [id number] [id number] [facility] 2023-09-27 00:00:00 2023-09-27 00:00:00 Telephone Richard Johnson [facility] [id number] [id number] 4.2.7.2.686 [id number] [facility] 2023-09-27 00:00:00 2023-09-27 00:00:00 Case Management Aletha Pryor [facility] [id number] 350.1.13.10 4.2.7.2.686 [id number] [facility] 2023-09-24 08:57:19 2023-09-24 23:59:00 Outpatient RICHARD CAPPS [facility] [id number] [facility] 2023-09-24 08:57:19 2023-09-24 23:59:00 Hospital Encounter Richard Johnson [facility] [id number] 350.1.13.10 4.2.7.2.686 [id number] [facility] 2023-09-20 09:30:00 2023-09-20 10:56:58 Outpatient R RICHARD JOHNSON [facility] [id number] [facility] 2023-09-20 09:30:00 2023-09-20 10:56:58 Office Visit Richard Johnson [facility] [id number] 350.1.13.10 4.2.7.2.686 [id number] [facility] 2023-09-20 00:00:00 2023-09-20 00:00:00 Orders Only Doctor Unassigned, [place] [facility] [id number] 350.1.13.10 4.2.7.2.686 [id number] [facility] 2023-09-12 00:00:00 2023-09-12 00:00:00 [facility] [id number] 350.1.13.10 4.2.7.2.686 [id number] [facility] 2023-09-11 10:26:27 2023-09-11 10:26:27 Outpatient S[facility] [id number] Mulugeta Cortez 2023-06-28 00:00:00 2023-06-28 00:00:00 Orders Only Doctor Unassigned, [place] [facility] 1.2.840.114 350.1.13.10 4.2.7.2.686 [id number] [id number] [facility] 2023-06-14 14:00:28 2023-06-14 14:00:28 Outpatient SFA SFA 1012 Mulugeta Cortez 2023-05-17 00:00:00 2023-05-17 00:00:00 Orders Only Doctor Unassigned, [place] [facility] 1.2.840.114 350.1.13.10 4.2.7.2.686 [id number] [id number] [facility] 2023-05-15 00:00:00 2023-05-15 00:00:00 Telephone Richard Johnson [facility] 1.2.840.114 350.1.13.10 4.2.7.2.686 [id number] [facility] 2023-05-14 00:00:00 2023-05-14 00:00:00 Telephone Richard Johnson [facility] 1.2.840.114 350.1.13.10 4.2.7.2.686 [id number] 085 [id number] [facility] 2023-04-05 10:20:25 2023-04-05 10:20:25 Outpatient SFA SFA [id number] Mulugeta Cortez 2023-04-04 15:29:19 2023-04-04 15:29:19 Outpatient SFA [facility] 0802 Mulugeta Cortez 2023-02-20 13:52:57 2023-02-20 13:52:57 Outpatient SFA SFA 0620 Mulugeta Cortez 2023-02-07 00:00:00 2023-02-07 00:00:[address] [facility] 1.2.840.114 350.1.13.10 4.2.7.2.686 [id number] [facility] 2023-01-31 14:55:49 2023-01-31 14:55:49 Outpatient SFA SFA 0531 Mulugeta Cortez 2023-01-31 00:00:00 2023-01-31 00:00:00 Refill Richard Johnson [facility] 1.2.840.114 350.1.13.10 4.2.7.2.686 [id number] [facility] 2023-01-31 00:00:00 2023-01-31 00:00:[address] [facility] 1.2.840.114 350.1.13.10 4.2.7.2.686 [id number] [id number] [facility] 2023-01-23 00:00:00 2023-01-23 00:00:00 Refill Richard Johnson [facility] 1.2.840.114 350.1.13.10 4.2.7.2.686 [id number] [id number] [facility] 2023-01-19 00:00:00 2023-01-19 00:00:[address] [facility] 1.2.840.114 350.1.13.10 4.2.7.2.686 [id number] [id number] [facility] 2022-12-20 15:29:15 2022-12-20 15:29:15 Outpatient SFA [facility] [id number] 0419 Mulugeta Cortez 2022-12-15 00:00:00 2022-12-15 00:00:[address] [facility] 1.2.840.114 350.1.13.10 4.2.7.2.686 [id number] [id number] [facility] 2022-11-07 11:07:43 2022-11-07 11:07:43 Outpatient SFA [facility] [id number] Mulugeta Cortez 2022-10-12 14:15:25 2022-10-12 14:15:25 Outpatient [facility] 0209 Mulugeta Cortez 2022-10-10 11:20:16 2022-10-10 11:20:16 Outpatient [facility] 0207 Mulugeta Cortez 2022-08-29 10:54:12 2022-08-29 10:54:12 Outpatient [facility] 1227 Mulugeta Parikh Diego 2022-07-14 11:30:00 2022-07-14 12:38:19 [facility] [id number] [facility] 2022-07-14 11:30:00 2022-07-14 12:38:19 Office Visit Richard Johnson [facility] 1.2.840.114 350.1.13.10 4.2.7.2.686 [id number] [id number] [facility] 2022-07-14 00:00:00 2022-07-14 00:00:00 Orders Only Doctor Unassigned, [place] [address].2.840.114 350.1.13.10 4.2.7.2.686 [id number] [id number] [facility] 2022-07-04 00:00:00 2022-07-04 00:00:00 Orders Only Doctor Unassigned, [place] [address].2.840.114 350.1.13.10 4.2.7.2.686 [id number] [id number] [facility] 2022-06-23 00:00:00 2022-06-23 00:00:00 Orders Only Doctor Unassigned, [place] [address].2.840.114 350.1.13.10 4.2.7.2.686 [id number] [facility] 2022-06-21 00:00:00 2022-06-21 00:00:00 Refill Richard Johnson [facility] 1.2.840.114 350.1.13.10 4.2.7.2.686 [id number] [id number] [facility] 2022-06-07 00:00:00 2022-06-07 00:00:[address] [facility] 1.2.840.114 350.1.13.10 4.2.7.2.686 [id number] [id number] [facility] 2022-06-02 00:00:00 2022-06-02 00:00:00 Telephone Richard Johnson [facility] 1.2.840.114 350.1.13.10 4.2.7.2.686 [id number] 085 [id number] [facility] 2022-03-27 00:00:00 2022-03-27 00:00:00 Orders Only Doctor Unassigned, [place] [facility] 1.2.840.114 350.1.13.10 4.2.7.2.686 [id number] [id number] [facility] 2022-03-21 00:00:00 2022-03-21 00:00:00 Telephone Richard Johnson [facility] 1.2.840.114 350.1.13.10 4.2.7.2.686 [id number] [id number] [facility] 2022-01-12 10:00:00 2022-01-12 10:30:00 Office Visit Richard Johnson [facility] 1.2.840.114 350.1.13.10 4.2.7.2.686 [id number] [id number] [facility] 2022-01-12 10:00:00 2022-01-12 10:00:00 Outpatient R RICHARD JOHNSON [facility] [id number] [facility] 2022-01-12 10:00:00 2022-01-12 10:00:00 Outpatient RICHARD CAPPS [facility] [id number] [facility] 2021-12-13 00:00:00 2021-12-13 00:00:00 Orders Only Doctor Unassigned, [place] [facility] 1.2840.114 350.1.13.10 4.2.7.2.686 [id number] [id number] [facility] 2021-11-30 00:00:00 2021-11-30 00:00:00 Refill Richard Johnson [facility] 1.284.114 350.1.13.10 4.2.7.2.686 [id number] [id number] [facility] 2021-11-18 00:00:00 2021-11-18 00:00:00 Letter (Out) Dorita Sampson [facility] 1.2.840.114 350.1.13.10 4.2.7.2.686 [id number] [facility] 2021-11-09 00:00:00 2021-11-09 00:00:00 Telephone Dorita Sampson [facility] 1.2840.114 350.1.13.10 4.2.7.2.686 [id number] [facility] 2021-11-08 09:00:00 2021-11-08 10:00:00 Ancillary Visit Therapist, Cassius Mata [facility] 1.284.114 350.1.13.10 4.2.7.2.686 [id number] [facility] 2021-11-08 09:00:00 2021-11-08 09:00:00 Outpatient CASSIUS VARGAS [facility] [id number] [facility] 2021-11-07 00:00:00 2021-11-07 00:00:[address] [facility] 1.20.114 350.1.13.10 4.2.7.2.686 [id number] [facility] 2021-11-04 11:30:00 2021-11-04 11:30:00 Outpatient RICHARD CAPPS [facility] [id number] [facility] 2021-11-02 14:00:00 2021-11-02 16:12:21 Outpatient CHANDRIKA YEAGER [facility] [id number] [facility] 2021-11-02 14:00:00 2021-11-02 16:12:21 Ancillary Visit Therapist, Adc Pulmonary Chandrika Houston [facility] 1.284.114 350.1.13.10 4.2.7.2.686 [id number] [facility] 2021-11-02 00:00:00 2021-11-02 00:00:00 Orders Only Doctor Unassigned, [place] [facility] 1.20.114 350.1.13.10 4.2.7.2.686 [id number] [id number] [facility] 2021-11-01 00:00:00 2021-11-01 00:00:[address] [facility] 1.2.114 350.1.13.10 4.2.7.2.686 [id number] [facility] 2021-10-20 00:00:00 2021-10-20 00:00:[address] [facility] 1.2840.114 350.1.13.10 4.2.7.2.686 [id number] [facility] 2021-10-20 00:00:00 2021-10-20 00:00:[address] [facility] 1..84.114 350.1.13.10 4.2.7.2.686 [id number] [facility] 2021-10-20 00:00:00 2021-10-20 00:00:00 Letter (Out) Wilfredo [facility] 1.840.114 350.1.13.10 4.2.7.2.686 [id number] [id number] [facility] 2021-10-19 16:30:00 2021-10-19 16:45:00 Laboratory Only Only, Ang Db Test Juliana Feng [facility] 1.84.114 350.1.13.10 4.2.7.2.686 [id number] [facility] 2021-10-19 16:30:00 2021-10-19 16:30:00 Outpatient TRAVIS TATUM III [facility] [id number] [facility] 2021-10-13 00:00:00 2021-10-13 00:00:00 [facility].114 350.1.13.10 4.2.7.2.686 [id number] [facility] 2021-10-12 14:15:00 2021-10-12 14:30:00 Laboratory Only Only, Ang Db Test Anni Jerome [facility] 1.84.114 350.1.13.10 4.2.7.2.686 [id number] [facility] 2021-10-12 14:15:00 2021-10-12 14:15:00 Outpatient R ANNI JEROME [facility] [id number] [facility] 2021-10-07 00:00:00 2021-10-07 00:00:00 Telephone Dorita Sampson [facility] 1.2.840.114 350.1.13.10 4.2.7.2.686 [id number] [facility] 2021-10-05 00:00:00 2021-10-05 00:00:00 Telephone Lucero Johnsontnviji [facility] 1.2.840.114 350.1.13.10 4.2.7.2.686 [id number] [id number] [facility] 2021-10-03 10:00:00 2021-10-03 10:10:00 Imm/Inj Visit Nurse, Adc Pob Immunizatio Jack Pitt [facility] 1.2.840.114 350.1.13.10 4.2.7.2.686 [id number] [facility] 2021-10-03 09:30:00 2021-10-03 09:45:00 Laboratory Only Only, Adc Test Richard Johnson [facility] 1.2.840.114 350.1.13.10 4.2.7.2.686 [id number] [facility] 2021-10-03 09:30:00 2021-10-03 09:30:00 Outpatient R RICHARD JOHNSON [facility] [id number] [facility] 2021-10-03 09:30:00 2021-10-03 09:30:00 Outpatient R RICHARD JOHNSON [facility] [id number] [facility] 2021-09-30 00:00:00 2021-09-30 00:00:00 Telephone Ivone Hollis [facility] 1.2.840.114 350.1.13.10 4.2.7.2.686 [id number] [facility] 2021-09-30 00:00:00 2021-09-30 00:00:00 Telephone HollisIngridey Malatih [facility] 1.2.840.114 350.1.13.10 4.2.7.2.686 [id number] [facility] 2021-08-04 11:30:00 2021-08-04 11:59:20 Office Visit Richard Johnson [facility] 1.2.840.114 350.1.13.10 4.2.7.2.686 [id number] [facility] 2021-08-04 11:30:00 2021-08-04 11:59:20 Outpatient R RICHARD JOHNSON SHICTViji [facility] [id number] [facility] 2021-08-04 11:30:00 2021-08-04 11:30:00 Outpatient R RICHARD JOHNSON SHICTViji [facility] [id number] [facility] 2021-06-03 00:00:00 2021-06-03 00:00:00 Telephone Richard Johnson [facility] 1.2.840.114 350.1.13.10 4.2.7.2.686 [id number] [id number] [facility] 2021-06-01 00:00:00 2021-06-01 00:00:00 Telephone Richard Johnson [facility] 1.2.840.114 350.1.13.10 4.2.7.2.686 [id number] [id number] [facility] 2021-05-13 10:00:00 2021-05-13 23:59:00 Hospital Encounter Richard Johnson [facility] 1.2.840.114 350.1.13.10 4.2.7.2.686 [id number] [facility] 2021-05-13 00:00:00 2021-05-13 00:00:00 Outpatient R RICHARD JOHNSON [facility] [id number] [facility] 2021-05-05 10:14:51 2021-05-05 10:45:[address] [facility] 1.2.840.114 350.1.13.10 4.2.7.2.686 [id number] [facility] 2021-05-05 10:20:00 2021-05-05 10:20:00 Outpatient R RICHARD JOHNSON [facility] [id number] [facility] 2021-05-05 00:00:00 2021-05-05 00:00:00 Orders Only Doctor Unassigned, [place] [facility] 1.2.840.114 350.1.13.10 4.2.7.2.686 [id number] [facility] 2021-02-03 13:30:00 2021-02-03 13:30:00 Outpatient R RICHARD JOHNSON [facility] [id number] [facility] 2021-01-05 10:00:00 2021-01-05 10:00:00 Outpatient RADHA INTERIANO [facility] [id number] [facility] 2020-12-08 17:10:00 2020-12-08 17:10:00 Outpatient RADHA INTERIANO [facility] [id number] [facility] 2020-12-08 11:30:00 2020-12-08 11:30:00 Outpatient CASSIUS VARGAS [facility] [id number] [facility] 2020-12-08 00:00:00 2020-12-08 00:00:00 Orders Only Richard Johnson [facility] 1.2840.114 350.1.13.10 4.2.7.2.686 [id number] [facility] 2020-12-01 14:00:00 2020-12-01 14:00:00 Outpatient R CASSIUS CHAU [facility] [id number] [facility] 2020-11-25 09:43:51 2020-11-25 09:58:51 Laboratory Only Only, Adc Test Cassius Chau [facility] 1.2840.114 350.1.13.10 4.2.7.2.686 [id number] [facility] 2020-11-25 09:45:00 2020-11-25 09:45:00 Outpatient R [facility] [id number] [facility] 2020-11-25 00:00:00 2020-11-25 00:00:00 Orders Only Doctor Unassigned, [place] [facility] 1.2840.114 350.1.13.10 4.2.7.2.686 [id number] [facility] 2020-11-17 00:00:00 2020-11-17 00:00:00 Telephone Richard Johnson [facility] 1.2840.114 350.1.13.10 4.2.7.2.686 [id number] [facility] 2020-10-28 12:50:27 2020-10-28 13:10:27 Office Visit Richard Johnson [facility] 1.2.840.114 350.1.13.10 4.2.7.2.686 [id number] [facility] 2020-10-28 12:40:00 2020-10-28 12:40:00 Outpatient RICHARD CAPPS [facility] [id number] [facility] 2020-10-28 00:00:00 2020-10-28 00:00:00 Orders Only Doctor Unassigned, [place] [facility] 1.2.840.114 350.1.13.10 4.2.7.2.686 [id number] [facility] Results Test Description Test Time Test Comments Results Result Co mments Source [id number] 00:00:00* Test Item Value Reference Range Interpretation Comme nts TSH, THIRD GENERATION (test code = 2821) 12.600 UIU/ML Mulugeta Alexis, THIRD [id number] 00:00:00* Test Item Value Reference Range Interpretation Comme nts TSH, THIRD GENERATION (test code = 2821) 7.390 UIU/ML [place]ulu[place]a Alexis, THIRD [id number] 00:00:00* Test Item Value Reference Range Interpretation Comme nts TSH, THIRD GENERATION (test code = 2821) 7.390 UIU/ML Mulugeta Alexis, THIRD [id number] 00:00:00* Test Item Value Reference Range Interpretation Comme nts TSH, THIRD GENERATION (test code = 2821) 7.390 UIU/ML Mulu[place]a Alexis, THIRD [id number] 05:36:50* Test Item Value Reference Range Interpretation Comme nts TSH, THIRD GENERATION (test code = 2821) 7.040 UIU/ML 0.400-4.100 H UNLESS OTHERWISE INDICATED, ALL TESTING PERFORMED AT [facility] [address] [place] [address] JIGGER [employer] POUNCING MACHINE OPERATOR: ALYSHA LAKE M.D. CLIA NUMBER [id number] [facility] [place]. [id number] TSH, THIRD [id number] 00:00:00* Test Item Value Reference Range Interpretation Comme nts TSH, THIRD GENERATION (test code = 2821) 7.040 UIU/ML Mulugeta Alexis, THIRD [id number] 00:00:00* Test Item Value Reference Range Interpretation Comme nts TSH, THIRD GENERATION (test code = 2821) 7.040 UIU/ML Mulugeta Alexis, THIRD [id number] 00:00:00* Test Item Value Reference Range Interpretation Comme nts TSH, THIRD GENERATION (test code = 2821) 7.040 UIU/ML Mulugeta CortezCOMPREHENSIVE METABOLIC [id number] 09:46:13* Test Item Value Reference Range Interpretation Comme nts GLUCOSE (test code = 2217) 83 MG/DL 70-99 BUN (test code = 2207) 19 MG/DL 8-23 CREATININE (test code = 2214) 0.98 MG/DL 0.60-1.30 eGFR (2020 CKD-EPI) (test code = 67823) 64 ML/MIN/1.73 >60 CALC BUN/CREAT (test code = 2235) 19 RATIO 6-28 SODIUM (test code = 223) 140 MEQ/L 133-146 POTASSIUM (test code = 2228) 4.7 MEQ/L 3.5-5.4 CHLORIDE (test code = 2215) 104 MEQ/L 95-107 CARBON DIOXIDE (test code = 2206) 19 MEQ/L 19-31 CALCIUM (test code = 2209) 9.2 MG/DL 8.5-10.5 PROTEIN, TOTAL (test code = 222) 7.1 G/DL 6.1-8.3 ALBUMIN (test code = 2201) 4.8 G/DL 3.5-5.2 CALC GLOBULIN (test code = 2240) 2.3 G/DL 1.9-3.7 CALC A/G RATIO (test code = 2234) 2.1 RATIO 1.0-2.6 BILIRUBIN, TOTAL (test code = 220) 0.2 MG/DL See_Comment [Automated me ssage] The system which generated this result transmitted reference range: <=1.2. The reference range was not used to interpret this result as normal/abnormal. ALKALINE PHOSPHATASE (test code = 2204) 150 U/L 40-140 H AST (test code = 2218) 23 U/L 9-40 ALT (test code = 2219) 13 U/L 5-40 [facility] has impo rtant pathology staff changes effective 11/01/2022. New pathology staff will provide uninterrupted, excellent patient care and clinical consultation. See URL: [email or web address]. UNLESS OTHERWISE INDICATED, ALL TESTING PERFORMED AT [facility] [address] [place] [address] JIGGER CROWN POUNCING MACHINE OPERATOR: ALYSHA LAKE M.D. CLIA NUMBER [id number] [facility] [place]. [id number] CBC W/AUTO DIFF WITH [id number] 05:45:28* Test Item Value Reference Range Interpretation Comme nts WBC (test code = 1001) 10.0 K/UL 3.5-11.0 RBC (test code = 1002) 4.04 M/UL 3.80-5.40 HEMOGLOBIN (test code = 1003) 13.1 G/DL 11.5-15.5 HEMATOCRIT (test code = 1004) 38.3 % 34.0-45.0 MCV (test code = 1005) 94.8 fL 80.0-99.0 MCH (test code = 1006) 32.4 PG 25.0-33.0 MCHC (test code = 1007) 34.2 G/DL 31.0-36.0 RDW (test code = 1038) 14.3 % 11.5-15.0 NEUTROPHILS (test code = 1008) 66.8 % LYMPHOCYTES (test code = 1010) 20.9 % MONOCYTES (test code = 1011) 8.7 % EOSINOPHILS (test code = 1012) 2.4 % BASOPHILS (test code = 1013) 1.0 % IMMATURE GRANULOCYTES (test code = 1036) 0.2 % NUCLEATED RBCS (test code = 1065) 0.0 /100 WBC'S See_Comment [Automated [employer]] The system which generated this result transmitted reference range: 0.0. The reference range was not used to interpret this result as normal/abnormal. PLATELET COUNT (test code = 1015) 358 K/UL 130-400 ABSOLUTE NEUTROPHILS (test code = 1066) 6.70 K/UL 1.50-7.50 ABSOLUTE LYMPHOCYTES (test code = 1067) 2.10 K/UL 1.00-4.00 ABSOLUTE MONOCYTES (test code = 1068) 0.87 K/UL 0.20-1.00 ABSOLUTE EOSINOPHILS (test code = 1040) 0.24 K/UL 0.00-0.50 ABSOLUTE BASOPHILS (test code = 1069) 0.10 K/UL 0.00-0.20 ABS IMMATURE GRANULOCYTES (test code = 1020) 0.02 K/UL 0.00-0.10 ABS NUCLEATED RBCS (test code = 01859) 0.00 K/UL 0.00-0.11 COMPREHENSIVE METABOLIC [id number] 00:00:00* Test Item Value Reference Range Interpretation Comme nts GLUCOSE (test code = 2217) 83 MG/DL BUN (test code = 2208) 19 MG/DL CREATININE (test code = 2214) 0.98 MG/DL eGFR (2020 CKD-EPI) (test co de = 67757) 64 ML/MIN/1.73 CALC BUN/CREAT (test code = 2235) 19 RATIO SODIUM (test code = 2231) 140 MEQ/L POTASSIUM (test code = 2228) 4.7 MEQ/L CHLORIDE (test code = 2215) 104 MEQ/L CARBON DIOXIDE (test code = 2206) 19 MEQ/L CALCIUM (test code = 2209) 9.2 MG/DL PROTEIN, TOTAL (test code = 2229) 7.1 G/DL ALBUMIN (test code = 2201) 4.8 G/DL CALC GLOBULIN (test code = 2240) 2.3 G/DL CALC A/G RATIO (test code = 2234) 2.1 RATIO BILIRUBIN, TOTAL (test code = 2207) 0.2 MG/DL ALKALINE PHOSPHATASE (test code = 2204) 150 U/L AST (test code = 2218) 23 U/L ALT (test code = 2219) 13 U/L [facility] [id number] 00:00:00* Test Item Value Reference Range Interpretation Comme nts WBC (test code = 1001) 10.0 K/UL RBC (test code = 1002) 4.04 M/UL HEMOGLOBIN (test code = 1003) 13.1 G/DL HEMATOCRIT (test code = 1004) 38.3 % MCV (test code = 1005) 94.8 fL MCH (test code = 1006) 32.4 PG MCHC (test code = 1007) 34.2 G/DL RDW (test code = 1038) 14.3 % NEUTROPHILS (test code = 1008) 66.8 % LYMPHOCYTES (test code = 1010) 20.9 % MONOCYTES (test code = 1011) 8.7 % EOSINOPHILS (test code = 1012) 2.4 % BASOPHILS (test code = 1013) 1.0 % IMMATURE GRANULOCYTES (test code = 1036) 0.2 % NUCLEATED RBCS (test code = 1065) 0.0 /100WBC'S PLATELET COUNT (test code = 1015) 358 K/UL ABSOLUTE NEUTROPHILS (test c ode = 1066) 6.70 K/UL ABSOLUTE LYMPHOCYTES (test c ode = 1067) 2.10 K/UL ABSOLUTE MONOCYTES (test cod e = 1068) 0.87 K/UL ABSOLUTE EOSINOPHILS (test c ode = 1040) 0.24 K/UL ABSOLUTE BASOPHILS (test cod e = 1069) 0.10 K/UL ABS IMMATURE GRANULOCYTES (t est code = 1020) 0.02 K/UL ABS NUCLEATED RBCS (test cod e = [id number]) 0.00 K/UL Mulugeta CortezCOMPREHENSIVE METABOLIC [id number] 00:00:00* Test Item Value Reference Range Interpretation Comme nts GLUCOSE (test code = 2217) 83 MG/DL BUN (test code = 2208) 19 MG/DL CREATININE (test code = 2214) 0.98 MG/DL eGFR (2020 CKD-EPI) (test co de = 88272) 64 ML/MIN/1.73 CALC BUN/CREAT (test code = 2235) 19 RATIO SODIUM (test code = 2231) 140 MEQ/L POTASSIUM (test code = 2228) 4.7 MEQ/L CHLORIDE (test code = 2215) 104 MEQ/L CARBON DIOXIDE (test code = 2206) 19 MEQ/L CALCIUM (test code = 2209) 9.2 MG/DL PROTEIN, TOTAL (test code = 2229) 7.1 G/DL ALBUMIN (test code = 2201) 4.8 G/DL CALC GLOBULIN (test code = 2240) 2.3 G/DL CALC A/G RATIO (test code = 2234) 2.1 RATIO BILIRUBIN, TOTAL (test code = 2207) 0.2 MG/DL ALKALINE PHOSPHATASE (test code = 2204) 150 U/L AST (test code = 2218) 23 U/L ALT (test code = 2219) 13 U/L Mulugeta CortezCBC W/AUTO [id number] 00:00:00* Test Item Value Reference Range Interpretation Comme nts WBC (test code = 1001) 10.0 K/UL RBC (test code = 1002) 4.04 M/UL HEMOGLOBIN (test code = 1003) 13.1 G/DL HEMATOCRIT (test code = 1004) 38.3 % MCV (test code = 1005) 94.8 fL MCH (test code = 1006) 32.4 PG MCHC (test code = 1007) 34.2 G/DL RDW (test code = 1038) 14.3 % NEUTROPHILS (test code = 1008) 66.8 % LYMPHOCYTES (test code = 1010) 20.9 % MONOCYTES (test code = 1011) 8.7 % EOSINOPHILS (test code = 1012) 2.4 % BASOPHILS (test code = 1013) 1.0 % IMMATURE GRANULOCYTES (test code = 1036) 0.2 % NUCLEATED RBCS (test code = 1065) 0.0 /100WBC'S PLATELET COUNT (test code = 1015) 358 K/UL ABSOLUTE NEUTROPHILS (test c ode = 1066) 6.70 K/UL ABSOLUTE LYMPHOCYTES (test c ode = 1067) 2.10 K/UL ABSOLUTE MONOCYTES (test cod e = 1068) 0.87 K/UL ABSOLUTE EOSINOPHILS (test c ode = 1040) 0.24 K/UL ABSOLUTE BASOPHILS (test cod e = 1069) 0.10 K/UL ABS IMMATURE GRANULOCYTES (t est code = 1020) 0.02 K/UL ABS NUCLEATED RBCS (test cod e = [id number]) 0.00 K/UL Mulugeta F AustinCOMPREHENSIVE METABOLIC [id number] 00:00:00* Test Item Value Reference Range Interpretation Comme nts GLUCOSE (test code = 2217) 83 MG/DL BUN (test code = 2208) 19 MG/DL CREATININE (test code = 2214) 0.98 MG/DL eGFR (2020 CKD-EPI) (test co de = 65568) 64 ML/MIN/1.73 CALC BUN/CREAT (test code = 2235) 19 RATIO SODIUM (test code = 2231) 140 MEQ/L POTASSIUM (test code = 2228) 4.7 MEQ/L CHLORIDE (test code = 2215) 104 MEQ/L CARBON DIOXIDE (test code = 2206) 19 MEQ/L CALCIUM (test code = 2209) 9.2 MG/DL PROTEIN, TOTAL (test code = 2229) 7.1 G/DL ALBUMIN (test code = 2201) 4.8 G/DL CALC GLOBULIN (test code = 2240) 2.3 G/DL CALC A/G RATIO (test code = 2234) 2.1 RATIO BILIRUBIN, TOTAL (test code = 2207) 0.2 MG/DL ALKALINE PHOSPHATASE (test code = 2204) 150 U/L AST (test code = 2218) 23 U/L ALT (test code = 2219) 13 U/L [facility]KING[facility]AUTO [id number] 00:00:00* Test Item Value Reference Range Interpretation Comme nts WBC (test code = 1001) 10.0 K/UL RBC (test code = 1002) 4.04 M/UL HEMOGLOBIN (test code = 1003) 13.1 G/DL HEMATOCRIT (test code = 1004) 38.3 % MCV (test code = 1005) 94.8 fL MCH (test code = 1006) 32.4 PG MCHC (test code = 1007) 34.2 G/DL RDW (test code = 1038) 14.3 % NEUTROPHILS (test code = 1008) 66.8 % LYMPHOCYTES (test code = 1010) 20.9 % MONOCYTES (test code = 1011) 8.7 % EOSINOPHILS (test code = 1012) 2.4 % BASOPHILS (test code = 1013) 1.0 % IMMATURE GRANULOCYTES (test code = 1036) 0.2 % NUCLEATED RBCS (test code = 1065) 0.0 /100WBC'S PLATELET COUNT (test code = 1015) 358 K/UL ABSOLUTE NEUTROPHILS (test c ode = 1066) 6.70 K/UL ABSOLUTE LYMPHOCYTES (test c ode = 1067) 2.10 K/UL ABSOLUTE MONOCYTES (test cod e = 1068) 0.87 K/UL ABSOLUTE EOSINOPHILS (test c ode = 1040) 0.24 K/UL ABSOLUTE BASOPHILS (test cod e = 1069) 0.10 K/UL ABS IMMATURE GRANULOCYTES (t est code = 1020) 0.02 K/UL ABS NUCLEATED RBCS (test cod e = 36461) 0.00 K/UL Mulugeta Escobar, THIRD [id number] 05:54:40* Test Item Value Reference Range Interpretation Comme nts TSH, THIRD GENERATION (test code = 2821) 9.540 UIU/ML 0.400-4.100 H FREE [id number] 05:54:40* Test Item Value Reference Range Interpretation Comme nts FREE T3 (test code = 4273) 2.3 PG/ML 2.2-4.2 FREE T4 (THYROXINE)2022-11-08 05:54:40* Test Item Value Reference Range Interpretation Comme nts FREE T4 (THYROXINE) (test code = 2823) 0.94 NG/DL 0.80-1.90 [facility] has impo rtant pathology staff changes effective 11/01/2022. New pathology staff will provide uninterrupted, excellent patient care and clinical consultation. See URL: [email or web address]. UNLESS OTHERWISE INDICATED, ALL TESTING PERFORMED AT [facility] [address] [place] [id number] [employer] MACHINE OPERATOR: ALYSHA LAKE M.D. CLIA NUMBER [id number] [facility] [place] [id number] COMPREHENSIVE METABOLIC [id number] 03:59:09* Test Item Value Reference Range Interpretation Comme nts GLUCOSE (test code = 2217) 97 MG/DL 70-99 BUN (test code = 2208) 23 MG/DL 8-23 CREATININE (test code = 2214) 0.84 MG/DL 0.60-1.30 eGFR (2020 CKD-EPI) (test code = 50954) 77 ML/MIN/1.73 >60 CALC BUN/CREAT (test code = 2235) 27 RATIO 6-28 SODIUM (test code = 2231) 137 MEQ/L 133-146 POTASSIUM (test code = 2228) 4.8 MEQ/L 3.5-5.4 CHLORIDE (test code = 2215) 99 MEQ/L 95-107 CARBON DIOXIDE (test code = 2206) 24 MEQ/L 19-31 CALCIUM (test code = 2209) 9.6 MG/DL 8.5-10.5 PROTEIN, TOTAL (test code = 222) 7.2 G/DL 6.1-8.3 ALBUMIN (test code = 220) 4.8 G/DL 3.5-5.2 CALC GLOBULIN (test code = 2240) 2.4 G/DL 1.9-3.7 CALC A/G RATIO (test code = 2234) 2.0 RATIO 1.0-2.6 BILIRUBIN, TOTAL (test code = 7) 0.6 MG/DL See_Comment [Automated Lingorami ssage] The system which generated this result transmitted reference range: <=1.2. The reference range was not used to interpret this result as normal/abnormal. ALKALINE PHOSPHATASE (test code = 4) 151 U/L 40-140 H AST (test code = 2218) 25 U/L 9-40 ALT (test code = 2219) 20 U/L 5-40 CBC W/AUTO DIFF WITH [id number] 03:43:56* Test Item Value Reference Range Interpretation Comme nts WBC (test code = 1001) 11.6 K/UL 3.5-11.0 H RBC (test code = 1002) 5.12 M/UL 3.80-5.40 HEMOGLOBIN (test code = 1003) 16.1 G/DL 11.5-15.5 H HEMATOCRIT (test code = 1004) 47.3 % 34.0-45.0 H MCV (test code = 1005) 92.4 fL 80.0-99.0 MCH (test code = 1006) 31.4 PG 25.0-33.0 MCHC (test code = 1007) 34.0 G/DL 31.0-36.0 RDW (test code = 1038) 16.2 % 11.5-15.0 H NEUTROPHILS (test code = 1008) 71.5 % LYMPHOCYTES (test code = 1010) 17.1 % MONOCYTES (test code = 1011) 8.4 % EOSINOPHILS (test code = 1012) 1.6 % BASOPHILS (test code = 1013) 1.1 % IMMATURE GRANULOCYTES (test code = 1036) 0.3 % NUCLEATED RBCS (test code = 1065) 0.0 /100 WBC'S See_Comment [Automated messa ge] The system which generated this result transmitted reference range: 0.0. The reference range was not used to interpret this result as normal/abnormal. PLATELET COUNT (test code = 1015) 384 K/UL 130-400 ABSOLUTE NEUTROPHILS (test code = 1066) 8.32 K/UL 1.50-7.50 H ABSOLUTE LYMPHOCYTES (test code = 1067) 1.99 K/UL 1.00-4.00 ABSOLUTE MONOCYTES (test code = 1068) 0.98 K/UL 0.20-1.00 ABSOLUTE EOSINOPHILS (test code = 1040) 0.19 K/UL 0.00-0.50 ABSOLUTE BASOPHILS (test code = 1069) 0.13 K/UL 0.00-0.20 ABS IMMATURE GRANULOCYTES (test code = 1020) 0.03 K/UL 0.00-0.10 ABS NUCLEATED RBCS (test code = 60964) 0.00 K/UL 0.00-0.11 COMPREHENSIVE METABOLIC [id number] 00:00:00* Test Item Value Reference Range Interpretation Comme nts GLUCOSE (test code = 2217) 97 MG/DL BUN (test code = 2208) 23 MG/DL CREATININE (test code = 2214) 0.84 MG/DL eGFR (2020 CKD-EPI) (test co de = 27545) 77 ML/MIN/1.73 CALC BUN/CREAT (test code = 2235) 27 RATIO SODIUM (test code = 2231) 137 MEQ/L POTASSIUM (test code = 2228) 4.8 MEQ/L CHLORIDE (test code = 2215) 99 MEQ/L CARBON DIOXIDE (test code = 2206) 24 MEQ/L CALCIUM (test code = 2209) 9.6 MG/DL PROTEIN, TOTAL (test code = 2229) 7.2 G/DL ALBUMIN (test code = 2201) 4.8 G/DL CALC GLOBULIN (test code = 2240) 2.4 G/DL CALC A/G RATIO (test code = 2234) 2.0 RATIO BILIRUBIN, TOTAL (test code = 2207) 0.6 MG/DL ALKALINE PHOSPHATASE (test code = 2204) 151 U/L AST (test code = 2218) 25 U/L ALT (test code = 2219) 20 U/L Mulugeta Parikh DiegoTSH, THIRD [id number] 00:00:00* Test Item Value Reference Range Interpretation Comme nts TSH, THIRD GENERATION (test code = 2821) 9.540 UIU/ML Mulugeta Davis [id number] 00:00:00* Test Item Value Reference Range Interpretation Comme nts FREE T3 (test code = 4273) 2.3 PG/ML Mulugeta Davis T4 (THYROXINE)2022-11-08 00:00:00* Test Item Value Reference Range Interpretation Comme nts FREE T4 (THYROXINE) (test co de = 2823) 0.94 NG/DL Mulugeta CortezCBC W/AUTO [id number] 00:00:00* Test Item Value Reference Range Interpretation Comme nts WBC (test code = 1001) 11.6 K/UL RBC (test code = 1002) 5.12 M/UL HEMOGLOBIN (test code = 1003) 16.1 G/DL HEMATOCRIT (test code = 1004) 47.3 % MCV (test code = 1005) 92.4 fL MCH (test code = 1006) 31.4 PG MCHC (test code = 1007) 34.0 G/DL RDW (test code = 1038) 16.2 % NEUTROPHILS (test code = 1008) 71.5 % LYMPHOCYTES (test code = 1010) 17.1 % MONOCYTES (test code = 1011) 8.4 % EOSINOPHILS (test code = 1012) 1.6 % BASOPHILS (test code = 1013) 1.1 % IMMATURE GRANULOCYTES (test code = 1036) 0.3 % NUCLEATED RBCS (test code = 1065) 0.0 /100WBC'S PLATELET COUNT (test code = 1015) 384 K/UL ABSOLUTE NEUTROPHILS (test c ode = 1066) 8.32 K/UL ABSOLUTE LYMPHOCYTES (test c ode = 1067) 1.99 K/UL ABSOLUTE MONOCYTES (test cod e = 1068) 0.98 K/UL ABSOLUTE EOSINOPHILS (test c ode = 1040) 0.19 K/UL ABSOLUTE BASOPHILS (test cod e = 1069) 0.13 K/UL ABS IMMATURE GRANULOCYTES (t est code = 1020) 0.03 K/UL ABS NUCLEATED RBCS (test cod e = 11344) 0.00 K/UL Mulugeta CortezCOMPREHENSIVE METABOLIC [id number] 00:00:00* Test Item Value Reference Range Interpretation Comme nts GLUCOSE (test code = 2217) 97 MG/DL BUN (test code = 2208) 23 MG/DL CREATININE (test code = 2214) 0.84 MG/DL eGFR (2020 CKD-EPI) (test co de = 09584) 77 ML/MIN/1.73 CALC BUN/CREAT (test code = 2235) 27 RATIO SODIUM (test code = 2231) 137 MEQ/L POTASSIUM (test code = 2228) 4.8 MEQ/L CHLORIDE (test code = 2215) 99 MEQ/L CARBON DIOXIDE (test code = 2206) 24 MEQ/L CALCIUM (test code = 2209) 9.6 MG/DL PROTEIN, TOTAL (test code = 2229) 7.2 G/DL ALBUMIN (test code = 2201) 4.8 G/DL CALC GLOBULIN (test code = 2240) 2.4 G/DL CALC A/G RATIO (test code = 2234) 2.0 RATIO BILIRUBIN, TOTAL (test code = 2207) 0.6 MG/DL ALKALINE PHOSPHATASE (test code = 4) 151 U/L AST (test code = 2217) 25 U/L ALT (test code = 2219) 20 U/L Mulugeta EscobarH, THIRD [id number] 00:00:00* Test Item Value Reference Range Interpretation Comme nts TSH, THIRD GENERATION (test code = 2821) 9.540 UIU/ML Mulugeta Cronin [id number] 00:00:00* Test Item Value Reference Range Interpretation Comme nts FREE T3 (test code = 4273) 2.3 PG/ML Mulugeta Cronin T4 (THYROXINE)2022-11-08 00:00:00* Test Item Value Reference Range Interpretation Comme nts FREE T4 (THYROXINE) (test co de = 2823) 0.94 NG/DL Mulugeta CortezC W/AUTO [id number] 00:00:00* Test Item Value Reference Range Interpretation Comme nts WBC (test code = 1001) 11.6 K/UL RBC (test code = 1002) 5.12 M/UL HEMOGLOBIN (test code = 1003) 16.1 G/DL HEMATOCRIT (test code = 1004) 47.3 % MCV (test code = 1005) 92.4 fL MCH (test code = 1006) 31.4 PG MCHC (test code = 1007) 34.0 G/DL RDW (test code = 1038) 16.2 % NEUTROPHILS (test code = 1008) 71.5 % LYMPHOCYTES (test code = 1010) 17.1 % MONOCYTES (test code = 1011) 8.4 % EOSINOPHILS (test code = 1012) 1.6 % BASOPHILS (test code = 1013) 1.1 % IMMATURE GRANULOCYTES (test code = 1036) 0.3 % NUCLEATED RBCS (test code = 1065) 0.0 /100WBC'S PLATELET COUNT (test code = 1015) 384 K/UL ABSOLUTE NEUTROPHILS (test c ode = 1066) 8.32 K/UL ABSOLUTE LYMPHOCYTES (test c ode = 1067) 1.99 K/UL ABSOLUTE MONOCYTES (test cod e = 1068) 0.98 K/UL ABSOLUTE EOSINOPHILS (test c ode = 1040) 0.19 K/UL ABSOLUTE BASOPHILS (test cod e = 1069) 0.13 K/UL ABS IMMATURE GRANULOCYTES (t est code = 1020) 0.03 K/UL ABS NUCLEATED RBCS (test cod e = 17650) 0.00 K/UL Mulugeta CortezCOMPREHENSIVE METABOLIC [id number] 00:00:00* Test Item Value Reference Range Interpretation Comme nts GLUCOSE (test code = 2217) 97 MG/DL BUN (test code = 2208) 23 MG/DL CREATININE (test code = 2214) 0.84 MG/DL eGFR (2020 CKD-EPI) (test co de = 00475) 77 ML/MIN/1.73 CALC BUN/CREAT (test code = 2235) 27 RATIO SODIUM (test code = 2231) 137 MEQ/L POTASSIUM (test code = 2228) 4.8 MEQ/L CHLORIDE (test code = 2215) 99 MEQ/L CARBON DIOXIDE (test code = 2206) 24 MEQ/L CALCIUM (test code = 2209) 9.6 MG/DL PROTEIN, TOTAL (test code = 2229) 7.2 G/DL ALBUMIN (test code = 2201) 4.8 G/DL CALC GLOBULIN (test code = 2240) 2.4 G/DL CALC A/G RATIO (test code = 2234) 2.0 RATIO BILIRUBIN, TOTAL (test code = 2207) 0.6 MG/DL ALKALINE PHOSPHATASE (test code = 2204) 151 U/L AST (test code = 2218) 25 U/L ALT (test code = 2219) 20 U/L Mulugeta EscobarH, THIRD [id number] 00:00:00* Test Item Value Reference Range Interpretation Comme nts TSH, THIRD GENERATION (test code = 2821) 9.540 UIU/ML Mulugeta Davis [id number] 00:00:00* Test Item Value Reference Range Interpretation Comme nts FREE T3 (test code = 4273) 2.3 PG/ML Mulugeta Davis T4 (THYROXINE)2022-11-08 00:00:00* Test Item Value Reference Range Interpretation Comme nts FREE T4 (THYROXINE) (test co de = 2823) 0.94 NG/DL Mulugeta CortezCBC W/AUTO [id number] 00:00:00* Test Item Value Reference Range Interpretation Comme nts WBC (test code = 1001) 11.6 K/UL RBC (test code = 1002) 5.12 M/UL HEMOGLOBIN (test code = 1003) 16.1 G/DL HEMATOCRIT (test code = 1004) 47.3 % MCV (test code = 1005) 92.4 fL MCH (test code = 1006) 31.4 PG MCHC (test code = 1007) 34.0 G/DL RDW (test code = 1038) 16.2 % NEUTROPHILS (test code = 1008) 71.5 % LYMPHOCYTES (test code = 1010) 17.1 % MONOCYTES (test code = 1011) 8.4 % EOSINOPHILS (test code = 1012) 1.6 % BASOPHILS (test code = 1013) 1.1 % IMMATURE GRANULOCYTES (test code = 1036) 0.3 % NUCLEATED RBCS (test code = 1065) 0.0 /100WBC'S PLATELET COUNT (test code = 1015) 384 K/UL ABSOLUTE NEUTROPHILS (test c ode = 1066) 8.32 K/UL ABSOLUTE LYMPHOCYTES (test c ode = 1067) 1.99 K/UL ABSOLUTE MONOCYTES (test cod e = 1068) 0.98 K/UL ABSOLUTE EOSINOPHILS (test c ode = 1040) 0.19 K/UL ABSOLUTE BASOPHILS (test cod e = 1069) 0.13 K/UL ABS IMMATURE GRANULOCYTES (t est code = 1020) 0.03 K/UL ABS NUCLEATED RBCS (test cod e = 56682) 0.00 K/UL Mulugeta CortezCBC W/AUTO DIFF WITH [id number] 08:42:46* Test Item Value Reference Range Interpretation Comme nts WBC (test code = 1001) 11.8 K/UL 3.5-11.0 H RBC (test code = 1002) 5.62 M/UL 3.80-5.40 H HEMOGLOBIN (test code = 1003) 17.6 G/DL 11.5-15.5 H HEMATOCRIT (test code = 1004) 51.8 % 34.0-45.0 H MCV (test code = 1005) 92.2 fL 80.0-99.0 MCH (test code = 1006) 31.3 PG 25.0-33.0 MCHC (test code = 1007) 34.0 G/DL 31.0-36.0 RDW (test code = 1038) 14.3 % 11.5-15.0 NEUTROPHILS (test code = 1008) 71.6 % LYMPHOCYTES (test code = 1010) 18.2 % MONOCYTES (test code = 1011) 7.5 % EOSINOPHILS (test code = 1012) 1.7 % BASOPHILS (test code = 1013) 0.8 % IMMATURE GRANULOCYTES (test code = 1036) 0.2 % NUCLEATED RBCS (test code = 1065) 0.0 /100 WBC'S See_Comment [Automated messa ge] The system which generated this result transmitted reference range: 0.0. The reference range was not used to interpret this result as normal/abnormal. PLATELET COUNT (test code = 1015) 317 K/UL 130-400 ABSOLUTE NEUTROPHILS (test code = 1066) 8.46 K/UL 1.50-7.50 H ABSOLUTE LYMPHOCYTES (test code = 1067) 2.14 K/UL 1.00-4.00 ABSOLUTE MONOCYTES (test code = 1068) 0.88 K/UL 0.20-1.00 ABSOLUTE EOSINOPHILS (test code = 1040) 0.20 K/UL 0.00-0.50 ABSOLUTE BASOPHILS (test code = 1069) 0.09 K/UL 0.00-0.20 ABS IMMATURE GRANULOCYTES (test code = 1020) 0.02 K/UL 0.00-0.10 ABS NUCLEATED RBCS (test code = 02009) 0.00 K/UL 0.00-0.11 TSH, THIRD [id number] 05:53:23* Test Item Value Reference Range Interpretation Comme nts TSH, THIRD GENERATION (test code = 2821) 9.880 UIU/ML 0.400-4.100 H COMPREHENSIVE METABOLIC [id number] 05:38:49* Test Item Value Reference Range Interpretation Comme nts GLUCOSE (test code = 2216) 99 MG/DL 70-99 BUN (test code = 2207) 15 MG/DL 8-23 CREATININE (test code = 2213) 0.79 MG/DL 0.60-1.30 eGFR (2020 CKD-EPI) (test code = ) 83 ML/MIN/1.73 >60 CALC BUN/CREAT (test code = 2234) 19 RATIO 6-28 SODIUM (test code = 2230) 139 MEQ/L 133-146 POTASSIUM (test code = 2227) 4.5 MEQ/L 3.5-5.4 CHLORIDE (test code = 2214) 99 MEQ/L 95-107 CARBON DIOXIDE (test code = 2205) 23 MEQ/L 19-31 CALCIUM (test code = 2208) 10.3 MG/DL 8.5-10.5 PROTEIN, TOTAL (test code = 2228) 7.2 G/DL 6.1-8.3 ALBUMIN (test code = 2200) 4.8 G/DL 3.5-5.2 CALC GLOBULIN (test code = 2240) 2.4 G/DL 1.9-3.7 CALC A/G RATIO (test code = 2233) 2.0 RATIO 1.0-2.6 BILIRUBIN, TOTAL (test code = 2206) 0.5 MG/DL See_Comment [Automated me ssage] The system which generated this result transmitted reference range: <=1.2. The reference range was not used to interpret this result as normal/abnormal. ALKALINE PHOSPHATASE (test code = 2203) 154 U/L 40-140 H AST (test code = 8) 25 U/L 9-40 ALT (test code = 2219) 18 U/L 5-40 [facility] has important pathology staff changes effective 11/01/2022. New pathology staff will provide uninterrupted, excellent patient care and clinical consultation. See URL: [email or web address]. UNLESS OTHERWISE INDICATED, ALL TESTING PERFORMED AT [facility] [address] [place] [address] CLIA: [id number], CAP: [id number] COMPREHENSIVE METABOLIC [id number] 00:00:00* Test Item Value Reference Range Interpretation Comme nts GLUCOSE (test code = 2217) 99 MG/DL BUN (test code = 2208) 15 MG/DL CREATININE (test code = 2214) 0.79 MG/DL eGFR (2020 CKD-EPI) (test co de = 57054) 83 ML/MIN/1.73 CALC BUN/CREAT (test code = 2235) 19 RATIO SODIUM (test code = 2231) 139 MEQ/L POTASSIUM (test code = 2228) 4.5 MEQ/L CHLORIDE (test code = 2215) 99 MEQ/L CARBON DIOXIDE (test code = 2206) 23 MEQ/L CALCIUM (test code = 2209) 10.3 MG/DL PROTEIN, TOTAL (test code = 2229) 7.2 G/DL ALBUMIN (test code = 2201) 4.8 G/DL CALC GLOBULIN (test code = 2240) 2.4 G/DL CALC A/G RATIO (test code = 2234) 2.0 RATIO BILIRUBIN, TOTAL (test code = 2207) 0.5 MG/DL ALKALINE PHOSPHATASE (test code = 2204) 154 U/L AST (test code = 2218) 25 U/L ALT (test code = 2219) 18 U/L Mulugeta [id number] 00:00:00* Test Item Value Reference Range Interpretation Comme nts TSH, THIRD GENERATION (test code = 2821) 9.880 UIU/ML Mulugeta CortezCBC W/AUTO [id number] 00:00:00* Test Item Value Reference Range Interpretation Comme nts WBC (test code = 1001) 11.8 K/UL RBC (test code = 1002) 5.62 M/UL HEMOGLOBIN (test code = 1003) 17.6 G/DL HEMATOCRIT (test code = 1004) 51.8 % MCV (test code = 1005) 92.2 fL MCH (test code = 1006) 31.3 PG MCHC (test code = 1007) 34.0 G/DL RDW (test code = 1038) 14.3 % NEUTROPHILS (test code = 1008) 71.6 % LYMPHOCYTES (test code = 1010) 18.2 % MONOCYTES (test code = 1011) 7.5 % EOSINOPHILS (test code = 1012) 1.7 % BASOPHILS (test code = 1013) 0.8 % IMMATURE GRANULOCYTES (test code = 1036) 0.2 % NUCLEATED RBCS (test code = 1065) 0.0 /100WBC'S PLATELET COUNT (test code = 1015) 317 K/UL ABSOLUTE NEUTROPHILS (test c ode = 1066) 8.46 K/UL ABSOLUTE LYMPHOCYTES (test c ode = 1067) 2.14 K/UL ABSOLUTE MONOCYTES (test cod e = 1068) 0.88 K/UL ABSOLUTE EOSINOPHILS (test c ode = 1040) 0.20 K/UL ABSOLUTE BASOPHILS (test cod e = 1069) 0.09 K/UL ABS IMMATURE GRANULOCYTES (t est code = 1020) 0.02 K/UL ABS NUCLEATED RBCS (test cod e = 39340) 0.00 K/UL Mulugeta Parikh DiegoCOMPREHENSIVE METABOLIC [id number] 00:00:00* Test Item Value Reference Range Interpretation Comme nts GLUCOSE (test code = 2217) 99 MG/DL BUN (test code = 2208) 15 MG/DL CREATININE (test code = 2214) 0.79 MG/DL eGFR (2020 CKD-EPI) (test co de = 39752) 83 ML/MIN/1.73 CALC BUN/CREAT (test code = 2235) 19 RATIO SODIUM (test code = 2231) 139 MEQ/L POTASSIUM (test code = 2228) 4.5 MEQ/L CHLORIDE (test code = 2215) 99 MEQ/L CARBON DIOXIDE (test code = 2206) 23 MEQ/L CALCIUM (test code = 2209) 10.3 MG/DL PROTEIN, TOTAL (test code = 2229) 7.2 G/DL ALBUMIN (test code = 2201) 4.8 G/DL CALC GLOBULIN (test code = 2240) 2.4 G/DL CALC A/G RATIO (test code = 2234) 2.0 RATIO BILIRUBIN, TOTAL (test code = 2207) 0.5 MG/DL ALKALINE PHOSPHATASE (test code = 2204) 154 U/L AST (test code = 2218) 25 U/L ALT (test code = 2219) 18 U/L Mulugeta Parikh [id number] 00:00:00* Test Item Value Reference Range Interpretation Comme nts TSH, THIRD GENERATION (test code = 2821) 9.880 UIU/ML Mulugeta CortezCBC W/AUTO [id number] 00:00:00* Test Item Value Reference Range Interpretation Comme nts WBC (test code = 1001) 11.8 K/UL RBC (test code = 1002) 5.62 M/UL HEMOGLOBIN (test code = 1003) 17.6 G/DL HEMATOCRIT (test code = 1004) 51.8 % MCV (test code = 1005) 92.2 fL MCH (test code = 1006) 31.3 PG MCHC (test code = 1007) 34.0 G/DL RDW (test code = 1038) 14.3 % NEUTROPHILS (test code = 1008) 71.6 % LYMPHOCYTES (test code = 1010) 18.2 % MONOCYTES (test code = 1011) 7.5 % EOSINOPHILS (test code = 1012) 1.7 % BASOPHILS (test code = 1013) 0.8 % IMMATURE GRANULOCYTES (test code = 1036) 0.2 % NUCLEATED RBCS (test code = 1065) 0.0 /100WBC'S PLATELET COUNT (test code = 1015) 317 K/UL ABSOLUTE NEUTROPHILS (test c ode = 1066) 8.46 K/UL ABSOLUTE LYMPHOCYTES (test c ode = 1067) 2.14 K/UL ABSOLUTE MONOCYTES (test cod e = 1068) 0.88 K/UL ABSOLUTE EOSINOPHILS (test c ode = 1040) 0.20 K/UL ABSOLUTE BASOPHILS (test cod e = 1069) 0.09 K/UL ABS IMMATURE GRANULOCYTES (t est code = 1020) 0.02 K/UL ABS NUCLEATED RBCS (test cod e = 44132) 0.00 K/UL Mulugeta CortezCOMPREHENSIVE METABOLIC [id number] 00:00:00* Test Item Value Reference Range Interpretation Comme nts GLUCOSE (test code = 2217) 99 MG/DL BUN (test code = 2208) 15 MG/DL CREATININE (test code = 2214) 0.79 MG/DL eGFR (2020 CKD-EPI) (test co de = 09194) 83 ML/MIN/1.73 CALC BUN/CREAT (test code = 2235) 19 RATIO SODIUM (test code = 2231) 139 MEQ/L POTASSIUM (test code = 2228) 4.5 MEQ/L CHLORIDE (test code = 2215) 99 MEQ/L CARBON DIOXIDE (test code = 2206) 23 MEQ/L CALCIUM (test code = 2209) 10.3 MG/DL PROTEIN, TOTAL (test code = 2229) 7.2 G/DL ALBUMIN (test code = 2201) 4.8 G/DL CALC GLOBULIN (test code = 2240) 2.4 G/DL CALC A/G RATIO (test code = 2234) 2.0 RATIO BILIRUBIN, TOTAL (test code = 2207) 0.5 MG/DL ALKALINE PHOSPHATASE (test code = 2204) 154 U/L AST (test code = 2218) 25 U/L ALT (test code = 2219) 18 U/L Mulugeta [id number] 00:00:00* Test Item Value Reference Range Interpretation Comme nts TSH, THIRD GENERATION (test code = 2821) 9.880 UIU/ML Mulugeta CortezCBC W/AUTO [id number] 00:00:00* Test Item Value Reference Range Interpretation Comme nts WBC (test code = 1001) 11.8 K/UL RBC (test code = 1002) 5.62 M/UL HEMOGLOBIN (test code = 1003) 17.6 G/DL HEMATOCRIT (test code = 1004) 51.8 % MCV (test code = 1005) 92.2 fL MCH (test code = 1006) 31.3 PG MCHC (test code = 1007) 34.0 G/DL RDW (test code = 1038) 14.3 % NEUTROPHILS (test code = 1008) 71.6 % LYMPHOCYTES (test code = 1010) 18.2 % MONOCYTES (test code = 1011) 7.5 % EOSINOPHILS (test code = 1012) 1.7 % BASOPHILS (test code = 1013) 0.8 % IMMATURE GRANULOCYTES (test code = 1036) 0.2 % NUCLEATED RBCS (test code = 1065) 0.0 /100WBC'S PLATELET COUNT (test code = 1015) 317 K/UL ABSOLUTE NEUTROPHILS (test c ode = 1066) 8.46 K/UL ABSOLUTE LYMPHOCYTES (test c ode = 1067) 2.14 K/UL ABSOLUTE MONOCYTES (test cod e = 1068) 0.88 K/UL ABSOLUTE EOSINOPHILS (test c ode = 1040) 0.20 K/UL ABSOLUTE BASOPHILS (test cod e = 1069) 0.09 K/UL ABS IMMATURE GRANULOCYTES (t est code = 1020) 0.02 K/UL ABS NUCLEATED RBCS (test cod e = 24574) 0.00 K/UL Mulugeta CortezCOMPREHENSIVE METABOLIC [id number] 05:11:30* Test Item Value Reference Range Interpretation Comme nts GLUCOSE (test code = 2217) 87 MG/DL 70-99 BUN (test code = 220) 15 MG/DL 8-23 CREATININE (test code = 2214) 0.88 MG/DL 0.60-1.30 eGFR (2020 CKD-EPI) (test code = 13257) 73 ML/MIN/1.73 >60 CALC BUN/CREAT (test code = 2235) 17 RATIO 6-28 SODIUM (test code = 223) 142 MEQ/L 133-146 POTASSIUM (test code = 2228) 4.2 MEQ/L 3.5-5.4 CHLORIDE (test code = 2215) 101 MEQ/L 95-107 CARBON DIOXIDE (test code = 2206) 26 MEQ/L 19-31 CALCIUM (test code = 2209) 9.8 MG/DL 8.5-10.5 PROTEIN, TOTAL (test code = 2229) 7.6 G/DL 6.1-8.3 ALBUMIN (test code = 2201) 4.5 G/DL 3.5-5.2 CALC GLOBULIN (test code = 2240) 3.1 G/DL 1.9-3.7 CALC A/G RATIO (test code = 2234) 1.5 RATIO 1.0-2.6 BILIRUBIN, TOTAL (test code = 2207) 0.3 MG/DL See_Comment [Automated me ssage] The system which generated this result transmitted reference range: <=1.2. The reference range was not used to interpret this result as normal/abnormal. ALKALINE PHOSPHATASE (test code = 2204) 196 U/L 40-140 H AST (test code = 2218) 27 U/L 9-40 ALT (test code = 2219) 12 U/L 5-40 UNLESS OTHERWISE INDICATED, ALL TESTING PERFORMED [facility] [employer] [address] [place] [id number] [employer] OPERATOR: HUGO BRANDT M.D. CLIA NUMBER [id number] [facility] [place]. [id number] COMPREHENSIVE METABOLIC [id number] 00:00:00* Test Item Value Reference Range Interpretation Comme nts GLUCOSE (test code = 2217) 87 MG/DL BUN (test code = 2208) 15 MG/DL CREATININE (test code = 2214) 0.88 MG/DL eGFR (2020 CKD-EPI) (test co de = 30178) 73 ML/MIN/1.73 CALC BUN/CREAT (test code = 2235) 17 RATIO SODIUM (test code = 2231) 142 MEQ/L POTASSIUM (test code = 2228) 4.2 MEQ/L CHLORIDE (test code = 2215) 101 MEQ/L CARBON DIOXIDE (test code = 2206) 26 MEQ/L CALCIUM (test code = 2209) 9.8 MG/DL PROTEIN, TOTAL (test code = 2229) 7.6 G/DL ALBUMIN (test code = 2201) 4.5 G/DL CALC GLOBULIN (test code = 2240) 3.1 G/DL CALC A/G RATIO (test code = 2234) 1.5 RATIO BILIRUBIN, TOTAL (test code = 2207) 0.3 MG/DL ALKALINE PHOSPHATASE (test code = 2204) 196 U/L AST (test code = 2218) 27 U/L ALT (test code = 2219) 12 U/L Mulugeta Parikh DiegoCOMPREHENSIVE METABOLIC [id number] 00:00:00* Test Item Value Reference Range Interpretation Comme nts GLUCOSE (test code = 2217) 87 MG/DL BUN (test code = 2208) 15 MG/DL CREATININE (test code = 2214) 0.88 MG/DL eGFR (2020 CKD-EPI) (test co de = 19499) 73 ML/MIN/1.73 CALC BUN/CREAT (test code = 2235) 17 RATIO SODIUM (test code = 2231) 142 MEQ/L POTASSIUM (test code = 2228) 4.2 MEQ/L CHLORIDE (test code = 2215) 101 MEQ/L CARBON DIOXIDE (test code = 2206) 26 MEQ/L CALCIUM (test code = 2209) 9.8 MG/DL PROTEIN, TOTAL (test code = 2229) 7.6 G/DL ALBUMIN (test code = 2201) 4.5 G/DL CALC GLOBULIN (test code = 2240) 3.1 G/DL CALC A/G RATIO (test code = 2234) 1.5 RATIO BILIRUBIN, TOTAL (test code = 2207) 0.3 MG/DL ALKALINE PHOSPHATASE (test code = 2204) 196 U/L AST (test code = 2218) 27 U/L ALT (test code = 2219) 12 U/L Mulugeta CortezCOMPREHENSIVE METABOLIC [id number] 00:00:00* Test Item Value Reference Range Interpretation Comme nts GLUCOSE (test code = 2217) 87 MG/DL BUN (test code = 2208) 15 MG/DL CREATININE (test code = 2214) 0.88 MG/DL eGFR (2020 CKD-EPI) (test co de = 26752) 73 ML/MIN/1.73 CALC BUN/CREAT (test code = 2235) 17 RATIO SODIUM (test code = 2231) 142 MEQ/L POTASSIUM (test code = 2228) 4.2 MEQ/L CHLORIDE (test code = 2215) 101 MEQ/L CARBON DIOXIDE (test code = 2206) 26 MEQ/L CALCIUM (test code = 2209) 9.8 MG/DL PROTEIN, TOTAL (test code = 2229) 7.6 G/DL ALBUMIN (test code = 2201) 4.5 G/DL CALC GLOBULIN (test code = 2240) 3.1 G/DL CALC A/G RATIO (test code = 2234) 1.5 RATIO BILIRUBIN, TOTAL (test code = 2207) 0.3 MG/DL ALKALINE PHOSPHATASE (test code = 2204) 196 U/L AST (test code = 2218) 27 U/L ALT (test code = 2219) 12 U/L [facility]ulugeta Parikh [facility] DIFF WITH [id number] 06:13:08* Test Item Value Reference Range Interpretation Comme nts WBC (test code = 1001) 8.5 K/UL 3.5-11.0 RBC (test code = 1002) 4.27 M/UL 3.80-5.40 HEMOGLOBIN (test code = 1003) 14.8 G/DL 11.5-15.5 HEMATOCRIT (test code = 1004) 41.6 % 34.0-45.0 MCV (test code = 1005) 97.4 fL 80.0-99.0 MCH (test code = 1006) 34.7 PG 25.0-33.0 H MCHC (test code = 1007) 35.6 G/DL 31.0-36.0 RDW (test code = 1038) 13.0 % 11.5-15.0 NEUTROPHILS (test code = 1008) 71.6 % LYMPHOCYTES (test code = 1010) 17.4 % MONOCYTES (test code = 1011) 7.7 % EOSINOPHILS (test code = 1012) 1.9 % BASOPHILS (test code = 1013) 1.2 % IMMATURE GRANULOCYTES (test code = 1036) 0.2 % NUCLEATED RBCS (test code = 1065) 0.0 /100 WBC'S See_Comment [Automated [employer]] The system which generated this result transmitted reference range: 0.0. The reference range was not used to interpret this result as normal/abnormal. PLATELET COUNT (test code = 1015) 267 K/UL 130-400 ABSOLUTE NEUTROPHILS (test code = 1066) 6.10 K/UL 1.50-7.50 ABSOLUTE LYMPHOCYTES (test code = 1067) 1.48 K/UL 1.00-4.00 ABSOLUTE MONOCYTES (test code = 1068) 0.66 K/UL 0.20-1.00 ABSOLUTE EOSINOPHILS (test code = 1040) 0.16 K/UL 0.00-0.50 ABSOLUTE BASOPHILS (test code = 1069) 0.10 K/UL 0.00-0.20 ABS IMMATURE GRANULOCYTES (test code = 1020) 0.02 K/UL 0.00-0.10 ABS NUCLEATED RBCS (test code = 34564) 0.00 K/UL 0.00-0.11 HEMOGLOBIN [id number] 05:44:27* Test Item Value Reference Range Interpretation Comme nts HEMOGLOBIN A1c (test code = 02699) 5.3 % 4.2-5.6 LIPID [id number] 04:17:42* Test Item Value Reference Range Interpretation Comme nts CHOLESTEROL (test code = 2210) 223 MG/DL <200 H TRIGLYCERIDES (test code = 2232) 285 MG/DL <150 H HDL CHOLESTEROL (test code = 2220) 60 MG/DL >39 CALC LDL CHOL (test code = 2237) 119 MG/DL <100 H NOTE: CALCULATED LDL IS BASED ON NETO-CONTRERAS METHOD WHICHINCLUDES ADJUSTABLE TRIGLYCERIDE:VLDL CHOLESTEROL RATIO.THIS FACTOR VARIES BY MEASURED TRIGLYCERIDE AND NON-HDLCHOLESTEROL CONCENTRATIONS WITH INCREASED CALCULATED LDL SEENIN HIGHER TRIGLYCERIDE OR LOWER NON-HDL SPECIMENS. FOR MOREINFORMATION, SEE CLIENT ANNOUNCEMENT AT [email or web address] RISK RATIO LDL/HDL (test code = 223) 1.98 RATIO <3.22 COMPREHENSIVE METABOLIC [id number] 04:17:42* Test Item Value Reference Range Interpretation Comme nts GLUCOSE (test code = 2216) 91 MG/DL 70-99 BUN (test code = 2207) 10 MG/DL 8-23 CREATININE (test code = 2213) 0.81 MG/DL 0.60-1.30 eGFR (2020 CKD-EPI) (test code = 71020) 81 ML/MIN/1.73 >60 CALC BUN/CREAT (test code = 2235) 12 RATIO 6-28 SODIUM (test code = 2230) 140 MEQ/L 133-146 POTASSIUM (test code = 2228) 4.5 MEQ/L 3.5-5.4 CHLORIDE (test code = 2215) 99 MEQ/L 95-107 CARBON DIOXIDE (test code = 2206) 24 MEQ/L 19-31 CALCIUM (test code = 2209) 9.7 MG/DL 8.5-10.5 PROTEIN, TOTAL (test code = 222) 7.4 G/DL 6.1-8.3 ALBUMIN (test code = 2201) 4.9 G/DL 3.5-5.2 CALC GLOBULIN (test code = 2240) 2.5 G/DL 1.9-3.7 CALC A/G RATIO (test code = 223) 2.0 RATIO 1.0-2.6 BILIRUBIN, TOTAL (test code = 2207) 0.4 MG/DL See_Comment [Automated me ssage] The system which generated this result transmitted reference range: <=1.2. The reference range was not used to interpret this result as normal/abnormal. ALKALINE PHOSPHATASE (test code = 2204) 180 U/L 40-140 H AST (test code = 2218) 66 U/L 9-40 H ALT (test code = 2219) 32 U/L 5-40 UNLESS OTHERWISE INDICATED, ALL TESTING PERFORMED ATCLINICAL PATHOLOGY [employer] [address] [place] [id number] [employer] MACH[employer] OPERATOR: HUGO BRANDT M.D. CLIA NUMBER [id number] [facility] [place]. [id number] HEMOGLOBIN [id number] 00:00:00* Test Item Value Reference Range Interpretation Comme nts HEMOGLOBIN A1c (test code = 52950) 5.3 % Mulugeta CortezLIPID [id number] 00:00:00* Test Item Value Reference Range Interpretation Comme nts CHOLESTEROL (test code = 2210) 223 MG/DL TRIGLYCERIDES (test code = 2232) 285 MG/DL HDL CHOLESTEROL (test code = 2220) 60 MG/DL CALC LDL CHOL (test code = 2237) 119 MG/DL RISK RATIO LDL/HDL (test cod e = 2238) 1.98 RATIO Mulugeta CortezCOMPREHENSIVE METABOLIC [id number] 00:00:00* Test Item Value Reference Range Interpretation Comme nts GLUCOSE (test code = 2217) 91 MG/DL BUN (test code = 2208) 10 MG/DL CREATININE (test code = 2214) 0.81 MG/DL eGFR (2020 CKD-EPI) (test co de = 09336) 81 ML/MIN/1.73 CALC BUN/CREAT (test code = 2235) 12 RATIO SODIUM (test code = 2231) 140 MEQ/L POTASSIUM (test code = 2228) 4.5 MEQ/L CHLORIDE (test code = 2215) 99 MEQ/L CARBON DIOXIDE (test code = 2206) 24 MEQ/L CALCIUM (test code = 2209) 9.7 MG/DL PROTEIN, TOTAL (test code = 2229) 7.4 G/DL ALBUMIN (test code = 2201) 4.9 G/DL CALC GLOBULIN (test code = 2240) 2.5 G/DL CALC A/G RATIO (test code = 2234) 2.0 RATIO BILIRUBIN, TOTAL (test code = 2207) 0.4 MG/DL ALKALINE PHOSPHATASE (test code = 2204) 180 U/L AST (test code = 2218) 66 U/L ALT (test code = 2219) 32 U/L Mulugeta CortezCBC W/AUTO [id number] 00:00:00* Test Item Value Reference Range Interpretation Comme nts WBC (test code = 1001) 8.5 K/UL RBC (test code = 1002) 4.27 M/UL HEMOGLOBIN (test code = 1003) 14.8 G/DL HEMATOCRIT (test code = 1004) 41.6 % MCV (test code = 1005) 97.4 fL MCH (test code = 1006) 34.7 PG MCHC (test code = 1007) 35.6 G/DL RDW (test code = 1038) 13.0 % NEUTROPHILS (test code = 1008) 71.6 % LYMPHOCYTES (test code = 1010) 17.4 % MONOCYTES (test code = 1011) 7.7 % EOSINOPHILS (test code = 1012) 1.9 % BASOPHILS (test code = 1013) 1.2 % IMMATURE GRANULOCYTES (test code = 1036) 0.2 % NUCLEATED RBCS (test code = 1065) 0.0 /100WBC'S PLATELET COUNT (test code = 1015) 267 K/UL ABSOLUTE NEUTROPHILS (test c ode = 1066) 6.10 K/UL ABSOLUTE LYMPHOCYTES (test c ode = 1067) 1.48 K/UL ABSOLUTE MONOCYTES (test cod e = 1068) 0.66 K/UL ABSOLUTE EOSINOPHILS (test c ode = 1040) 0.16 K/UL ABSOLUTE BASOPHILS (test cod e = 1069) 0.10 K/UL ABS IMMATURE GRANULOCYTES (t est code = 1020) 0.02 K/UL ABS NUCLEATED RBCS (test cod e = 51762) 0.00 K/UL Mulugeta CortezHEMOGLOBIN [id number] 00:00:00* Test Item Value Reference Range Interpretation Comme nts HEMOGLOBIN A1c (test code = 57243) 5.3 % Mulugeta CortezLIPID [id number] 00:00:00* Test Item Value Reference Range Interpretation Comme nts CHOLESTEROL (test code = 2210) 223 MG/DL TRIGLYCERIDES (test code = 2232) 285 MG/DL HDL CHOLESTEROL (test code = 2220) 60 MG/DL CALC LDL CHOL (test code = 2237) 119 MG/DL RISK RATIO LDL/HDL (test cod e = 2238) 1.98 RATIO Mulugeta CortezCOMPREHENSIVE METABOLIC [id number] 00:00:00* Test Item Value Reference Range Interpretation Comme nts GLUCOSE (test code = 2217) 91 MG/DL BUN (test code = 2208) 10 MG/DL CREATININE (test code = 2214) 0.81 MG/DL eGFR (2020 CKD-EPI) (test co de = 81795) 81 ML/MIN/1.73 CALC BUN/CREAT (test code = 2235) 12 RATIO SODIUM (test code = 2231) 140 MEQ/L POTASSIUM (test code = 2228) 4.5 MEQ/L CHLORIDE (test code = 2215) 99 MEQ/L CARBON DIOXIDE (test code = 2206) 24 MEQ/L CALCIUM (test code = 2209) 9.7 MG/DL PROTEIN, TOTAL (test code = 2229) 7.4 G/DL ALBUMIN (test code = 2201) 4.9 G/DL CALC GLOBULIN (test code = 2240) 2.5 G/DL CALC A/G RATIO (test code = 2234) 2.0 RATIO BILIRUBIN, TOTAL (test code = 2207) 0.4 MG/DL ALKALINE PHOSPHATASE (test code = 2204) 180 U/L AST (test code = 2218) 66 U/L ALT (test code = 2219) 32 U/L [facility] [id number] 00:00:00* Test Item Value Reference Range Interpretation Comme nts WBC (test code = 1001) 8.5 K/UL RBC (test code = 1002) 4.27 M/UL HEMOGLOBIN (test code = 1003) 14.8 G/DL HEMATOCRIT (test code = 1004) 41.6 % MCV (test code = 1005) 97.4 fL MCH (test code = 1006) 34.7 PG MCHC (test code = 1007) 35.6 G/DL RDW (test code = 1038) 13.0 % NEUTROPHILS (test code = 1008) 71.6 % LYMPHOCYTES (test code = 1010) 17.4 % MONOCYTES (test code = 1011) 7.7 % EOSINOPHILS (test code = 1012) 1.9 % BASOPHILS (test code = 1013) 1.2 % IMMATURE GRANULOCYTES (test code = 1036) 0.2 % NUCLEATED RBCS (test code = 1065) 0.0 /100WBC'S PLATELET COUNT (test code = 1015) 267 K/UL ABSOLUTE NEUTROPHILS (test c ode = 1066) 6.10 K/UL ABSOLUTE LYMPHOCYTES (test c ode = 1067) 1.48 K/UL ABSOLUTE MONOCYTES (test cod e = 1068) 0.66 K/UL ABSOLUTE EOSINOPHILS (test c ode = 1040) 0.16 K/UL ABSOLUTE BASOPHILS (test cod e = 1069) 0.10 K/UL ABS IMMATURE GRANULOCYTES (t est code = 1020) 0.02 K/UL ABS NUCLEATED RBCS (test cod e = 25158) 0.00 K/UL Mulugeta CortezHEMOGLOBIN [id number] 00:00:00* Test Item Value Reference Range Interpretation Comme nts HEMOGLOBIN A1c (test code = 63306) 5.3 % Mulugeta CortezLIPID [id number] 00:00:00* Test Item Value Reference Range Interpretation Comme nts CHOLESTEROL (test code = 2210) 223 MG/DL TRIGLYCERIDES (test code = 2232) 285 MG/DL HDL CHOLESTEROL (test code = 2220) 60 MG/DL CALC LDL CHOL (test code = 2237) 119 MG/DL RISK RATIO LDL/HDL (test cod e = 2238) 1.98 RATIO Mulugeat CortezCOMPREHENSIVE METABOLIC [id number] 00:00:00* Test Item Value Reference Range Interpretation Comme nts GLUCOSE (test code = 2217) 91 MG/DL BUN (test code = 2208) 10 MG/DL CREATININE (test code = 2214) 0.81 MG/DL eGFR (2020 CKD-EPI) (test co de = 11510) 81 ML/MIN/1.73 CALC BUN/CREAT (test code = 2235) 12 RATIO SODIUM (test code = 2231) 140 MEQ/L POTASSIUM (test code = 2228) 4.5 MEQ/L CHLORIDE (test code = 2215) 99 MEQ/L CARBON DIOXIDE (test code = 2206) 24 MEQ/L CALCIUM (test code = 2209) 9.7 MG/DL PROTEIN, TOTAL (test code = 2229) 7.4 G/DL ALBUMIN (test code = 2201) 4.9 G/DL CALC GLOBULIN (test code = 2240) 2.5 G/DL CALC A/G RATIO (test code = 2234) 2.0 RATIO BILIRUBIN, TOTAL (test code = 2207) 0.4 MG/DL ALKALINE PHOSPHATASE (test code = 2204) 180 U/L AST (test code = 2218) 66 U/L ALT (test code = 2219) 32 U/L Mulugeta GuerreroC W/AUTO [id number] 00:00:00* Test Item Value Reference Range Interpretation Comme nts WBC (test code = 1001) 8.5 K/UL RBC (test code = 1002) 4.27 M/UL HEMOGLOBIN (test code = 1003) 14.8 G/DL HEMATOCRIT (test code = 1004) 41.6 % MCV (test code = 1005) 97.4 fL MCH (test code = 1006) 34.7 PG MCHC (test code = 1007) 35.6 G/DL RDW (test code = 1038) 13.0 % NEUTROPHILS (test code = 1008) 71.6 % LYMPHOCYTES (test code = 1010) 17.4 % MONOCYTES (test code = 1011) 7.7 % EOSINOPHILS (test code = 1012) 1.9 % BASOPHILS (test code = 1013) 1.2 % IMMATURE GRANULOCYTES (test code = 1036) 0.2 % NUCLEATED RBCS (test code = 1065) 0.0 /100WBC'S PLATELET COUNT (test code = 1015) 267 K/UL ABSOLUTE NEUTROPHILS (test c ode = 1066) 6.10 K/UL ABSOLUTE LYMPHOCYTES (test c ode = 1067) 1.48 K/UL ABSOLUTE MONOCYTES (test cod e = 1068) 0.66 K/UL ABSOLUTE EOSINOPHILS (test c ode = 1040) 0.16 K/UL ABSOLUTE BASOPHILS (test cod e = 1069) 0.10 K/UL ABS IMMATURE GRANULOCYTES (t est code = 1020) 0.02 K/UL ABS NUCLEATED RBCS (test cod e = 27200) 0.00 K/UL Mulugeta CortezBRAIN NATRIURETIC PEPTIDE [ADDED]2020-07-23 00:00:00* Test Item Value Reference Range Interpretation Comme nts BRAIN NATRIURETIC PEPTIDE (t est code = 91888) 413 PG/ML Mulugeta GuerreroC W/AUTO [id number] 00:00:00* Test Item Value Reference Range Interpretation Comme nts WBC (test code = 1001) 9.3 K/UL RBC (test code = 1002) 3.77 M/UL HEMOGLOBIN (test code = 1003) 13.5 G/DL HEMATOCRIT (test code = 1004) 38.5 % MCV (test code = 1005) 102.1 fL MCH (test code = 1006) 35.8 PG MCHC (test code = 1007) 35.1 G/DL RDW (test code = 1038) 12.7 % NEUTROPHILS (test code = 1008) 73.0 % LYMPHOCYTES (test code = 1010) 15.9 % MONOCYTES (test code = 1011) 8.9 % EOSINOPHILS (test code = 1012) 1.4 % BASOPHILS (test code = 1013) 0.8 % PLATELET COUNT (test code = 1015) 210 K/UL Mulugeta CortezBRAIN NATRIURETIC PEPTIDE [ADDED]2020-07-23 00:00:00* Test Item Value Reference Range Interpretation Comme nts BRAIN NATRIURETIC PEPTIDE (t est code = 90994) 413 PG/ML Mulugeta CortezCBC W/AUTO [id number] 00:00:00* Test Item Value Reference Range Interpretation Comme nts WBC (test code = 1001) 9.3 K/UL RBC (test code = 1002) 3.77 M/UL HEMOGLOBIN (test code = 1003) 13.5 G/DL HEMATOCRIT (test code = 1004) 38.5 % MCV (test code = 1005) 102.1 fL MCH (test code = 1006) 35.8 PG MCHC (test code = 1007) 35.1 G/DL RDW (test code = 1038) 12.7 % NEUTROPHILS (test code = 1008) 73.0 % LYMPHOCYTES (test code = 1010) 15.9 % MONOCYTES (test code = 1011) 8.9 % EOSINOPHILS (test code = 1012) 1.4 % BASOPHILS (test code = 1013) 0.8 % PLATELET COUNT (test code = 1015) 210 K/UL Mulugeta CortezBRAIN NATRIURETIC PEPTIDE [ADDED]2020-07-23 00:00:00* Test Item Value Reference Range Interpretation Comme nts BRAIN NATRIURETIC PEPTIDE (t est code = 18645) 413 PG/ML Mulugeta CortezCBC W/AUTO [id number] 00:00:00* Test Item Value Reference Range Interpretation Comme nts WBC (test code = 1001) 9.3 K/UL RBC (test code = 1002) 3.77 M/UL HEMOGLOBIN (test code = 1003) 13.5 G/DL HEMATOCRIT (test code = 1004) 38.5 % MCV (test code = 1005) 102.1 fL MCH (test code = 1006) 35.8 PG MCHC (test code = 1007) 35.1 G/DL RDW (test code = 1038) 12.7 % NEUTROPHILS (test code = 1008) 73.0 % LYMPHOCYTES (test code = 1010) 15.9 % MONOCYTES (test code = 1011) 8.9 % EOSINOPHILS (test code = 1012) 1.4 % BASOPHILS (test code = 1013) 0.8 % PLATELET COUNT (test code = 1015) 210 K/UL Mulugeta CortezBRAIN NATRIURETIC PEPTIDE [ADDED]2020-07-07 00:00:00* Test Item Value Reference Range Interpretation Comme nts BRAIN NATRIURETIC PEPTIDE (t est code = 95234) 201 PG/ML Mulugeta Parikh DiegoCBC W/AUTO [id number] 00:00:00* Test Item Value Reference Range Interpretation Comme nts WBC (test code = 1001) 10.5 K/UL RBC (test code = 1002) 4.10 M/UL HEMOGLOBIN (test code = 1003) 14.3 G/DL HEMATOCRIT (test code = 1004) 40.9 % MCV (test code = 1005) 99.8 fL MCH (test code = 1006) 34.9 PG MCHC (test code = 1007) 35.0 G/DL RDW (test code = 1038) 12.6 % NEUTROPHILS (test code = 1008) 78.8 % LYMPHOCYTES (test code = 1010) 10.8 % MONOCYTES (test code = 1011) 8.7 % EOSINOPHILS (test code = 1012) 1.1 % BASOPHILS (test code = 1013) 0.6 % PLATELET COUNT (test code = 1015) 246 K/UL Mulugeta Parikh DiegoCOMPREHENSIVE METABOLIC [id number] 00:00:00* Test Item Value Reference Range Interpretation Comme nts GLUCOSE (test code = 2217) 102 MG/DL BUN (test code = 2208) 36 MG/DL CREATININE (test code = 2214) 1.00 MG/DL eGFR AMER. (test cod e = 21567) 69 ML/MIN/1.73 eGFR NON- AMER. (test code = 03943) 60 ML/MIN/1.73 CALC BUN/CREAT (test code = 2235) 36 RATIO SODIUM (test code = 2231) 135 MEQ/L POTASSIUM (test code = 2228) 4.2 MEQ/L CHLORIDE (test code = 2215) 94 MEQ/L CARBON DIOXIDE (test code = 2206) 26 MEQ/L CALCIUM (test code = 2209) 9.9 MG/DL PROTEIN, TOTAL (test code = 2229) 6.8 G/DL ALBUMIN (test code = 2201) 4.4 G/DL CALC GLOBULIN (test code = 2240) 2.4 G/DL CALC A/G RATIO (test code = 2234) 1.8 RATIO BILIRUBIN, TOTAL (test code = 2207) 0.7 MG/DL ALKALINE PHOSPHATASE (test code = 2204) 112 U/L AST (test code = 2218) 29 U/L ALT (test code = 2219) 20 U/L Mulugeta CortezBRAIN NATRIURETIC PEPTIDE [ADDED]2020-07-07 00:00:00* Test Item Value Reference Range Interpretation Comme nts BRAIN NATRIURETIC PEPTIDE (t est code = 46256) 201 PG/ML Mulugeta CortezCBC W/AUTO [id number] 00:00:00* Test Item Value Reference Range Interpretation Comme nts WBC (test code = 1001) 10.5 K/UL RBC (test code = 1002) 4.10 M/UL HEMOGLOBIN (test code = 1003) 14.3 G/DL HEMATOCRIT (test code = 1004) 40.9 % MCV (test code = 1005) 99.8 fL MCH (test code = 1006) 34.9 PG MCHC (test code = 1007) 35.0 G/DL RDW (test code = 1038) 12.6 % NEUTROPHILS (test code = 1008) 78.8 % LYMPHOCYTES (test code = 1010) 10.8 % MONOCYTES (test code = 1011) 8.7 % EOSINOPHILS (test code = 1012) 1.1 % BASOPHILS (test code = 1013) 0.6 % PLATELET COUNT (test code = 1015) 246 K/UL Mulugeta CortezCOMPREHENSIVE METABOLIC [id number] 00:00:00* Test Item Value Reference Range Interpretation Comme nts GLUCOSE (test code = 2217) 102 MG/DL BUN (test code = 2208) 36 MG/DL CREATININE (test code = 2214) 1.00 MG/DL eGFR AMER. (test cod e = 72754) 69 ML/MIN/1.73 eGFR NON- AMER. (test code = 23435) 60 ML/MIN/1.73 CALC BUN/CREAT (test code = 2235) 36 RATIO SODIUM (test code = 2231) 135 MEQ/L POTASSIUM (test code = 2228) 4.2 MEQ/L CHLORIDE (test code = 2215) 94 MEQ/L CARBON DIOXIDE (test code = 2206) 26 MEQ/L CALCIUM (test code = 2209) 9.9 MG/DL PROTEIN, TOTAL (test code = 2229) 6.8 G/DL ALBUMIN (test code = 2201) 4.4 G/DL CALC GLOBULIN (test code = 2240) 2.4 G/DL CALC A/G RATIO (test code = 2234) 1.8 RATIO BILIRUBIN, TOTAL (test code = 2207) 0.7 MG/DL ALKALINE PHOSPHATASE (test code = 2204) 112 U/L AST (test code = 2218) 29 U/L ALT (test code = 2219) 20 U/L Mulugeta CortezBRAIN NATRIURETIC PEPTIDE [ADDED]2020-07-07 00:00:00* Test Item Value Reference Range Interpretation Comme nts BRAIN NATRIURETIC PEPTIDE (t est code = 83608) 201 PG/ML Mulugeta CortezCBC W/AUTO [id number] 00:00:00* Test Item Value Reference Range Interpretation Comme nts WBC (test code = 1001) 10.5 K/UL RBC (test code = 1002) 4.10 M/UL HEMOGLOBIN (test code = 1003) 14.3 G/DL HEMATOCRIT (test code = 1004) 40.9 % MCV (test code = 1005) 99.8 fL MCH (test code = 1006) 34.9 PG MCHC (test code = 1007) 35.0 G/DL RDW (test code = 1038) 12.6 % NEUTROPHILS (test code = 1008) 78.8 % LYMPHOCYTES (test code = 1010) 10.8 % MONOCYTES (test code = 1011) 8.7 % EOSINOPHILS (test code = 1012) 1.1 % BASOPHILS (test code = 1013) 0.6 % PLATELET COUNT (test code = 1015) 246 K/UL Mulugeta CortezCOMPREHENSIVE METABOLIC [id number] 00:00:00* Test Item Value Reference Range Interpretation Comme nts GLUCOSE (test code = 2217) 102 MG/DL BUN (test code = 2208) 36 MG/DL CREATININE (test code = 2214) 1.00 MG/DL eGFR AMER. (test cod e = 24437) 69 ML/MIN/1.73 eGFR NON- AMER. (test code = 22296) 60 ML/MIN/1.73 CALC BUN/CREAT (test code = 2235) 36 RATIO SODIUM (test code = 2231) 135 MEQ/L POTASSIUM (test code = 2228) 4.2 MEQ/L CHLORIDE (test code = 2215) 94 MEQ/L CARBON DIOXIDE (test code = 2206) 26 MEQ/L CALCIUM (test code = 2209) 9.9 MG/DL PROTEIN, TOTAL (test code = 2229) 6.8 G/DL ALBUMIN (test code = 2201) 4.4 G/DL CALC GLOBULIN (test code = 2240) 2.4 G/DL CALC A/G RATIO (test code = 2234) 1.8 RATIO BILIRUBIN, TOTAL (test code = 2207) 0.7 MG/DL ALKALINE PHOSPHATASE (test code = 2204) 112 U/L AST (test code = 2218) 29 U/L ALT (test code = 2219) 20 U/L [facility] [id number] 00:00:00* Test Item Value Reference Range Interpretation Comme nts WBC (test code = 1001) 8.7 K/UL RBC (test code = 1002) 4.43 M/UL HEMOGLOBIN (test code = 1003) 16.0 G/DL HEMATOCRIT (test code = 1004) 45.3 % MCV (test code = 1005) 102.3 fL MCH (test code = 1006) 36.1 PG MCHC (test code = 1007) 35.3 G/DL RDW (test code = 1038) 12.9 % NEUTROPHILS (test code = 1008) 68.6 % LYMPHOCYTES (test code = 1010) 18.6 % MONOCYTES (test code = 1011) 9.7 % EOSINOPHILS (test code = 1012) 1.7 % BASOPHILS (test code = 1013) 1.4 % PLATELET COUNT (test code = 1015) 286 K/UL Mulugeta Parikh [id number] 00:00:00* Test Item Value Reference Range Interpretation Comme nts AMYLASE (test code = 2205) 56 U/L Mulugeta Parikh [id number] 00:00:00* Test Item Value Reference Range Interpretation Comme nts LIPASE (test code = 2058) 61 U/L Mulugeta CortezCOMPREHENSIVE METABOLIC [id number] 00:00:00* Test Item Value Reference Range Interpretation Comme nts GLUCOSE (test code = 2217) 110 MG/DL BUN (test code = 2208) 10 MG/DL CREATININE (test code = 2214) 1.12 MG/DL eGFR AMER. (test cod e = 48830) 61 ML/MIN/1.73 eGFR NON- AMER. (test code = 74579) 52 ML/MIN/1.73 CALC BUN/CREAT (test code = 2235) 9 RATIO SODIUM (test code = 2231) 142 MEQ/L POTASSIUM (test code = 2228) 4.8 MEQ/L CHLORIDE (test code = 2215) 98 MEQ/L CARBON DIOXIDE (test code = 2206) 26 MEQ/L CALCIUM (test code = 2209) 9.9 MG/DL PROTEIN, TOTAL (test code = 2229) 7.0 G/DL ALBUMIN (test code = 2201) 4.4 G/DL CALC GLOBULIN (test code = 2240) 2.6 G/DL CALC A/G RATIO (test code = 2234) 1.7 RATIO BILIRUBIN, TOTAL (test code = 2207) 0.6 MG/DL ALKALINE PHOSPHATASE (test code = 2204) 136 U/L AST (test code = 2218) 76 U/L ALT (test code = 2219) 35 U/L Mulugeta CortezCBC W/AUTO [id number] 00:00:00* Test Item Value Reference Range Interpretation Comme nts WBC (test code = 1001) 8.7 K/UL RBC (test code = 1002) 4.43 M/UL HEMOGLOBIN (test code = 1003) 16.0 G/DL HEMATOCRIT (test code = 1004) 45.3 % MCV (test code = 1005) 102.3 fL MCH (test code = 1006) 36.1 PG MCHC (test code = 1007) 35.3 G/DL RDW (test code = 1038) 12.9 % NEUTROPHILS (test code = 1008) 68.6 % LYMPHOCYTES (test code = 1010) 18.6 % MONOCYTES (test code = 1011) 9.7 % EOSINOPHILS (test code = 1012) 1.7 % BASOPHILS (test code = 1013) 1.4 % PLATELET COUNT (test code = 1015) 286 K/UL Mulugeta Parikh [id number] 00:00:00* Test Item Value Reference Range Interpretation Comme nts AMYLASE (test code = 2205) 56 U/L Mulugeta F [id number] 00:00:00* Test Item Value Reference Range Interpretation Comme nts LIPASE (test code = 2058) 61 U/L Mulugeta CortezCOMPREHENSIVE METABOLIC [id number] 00:00:00* Test Item Value Reference Range Interpretation Comme nts GLUCOSE (test code = 2217) 110 MG/DL BUN (test code = 2208) 10 MG/DL CREATININE (test code = 2214) 1.12 MG/DL eGFR AMER. (test cod e = 74317) 61 ML/MIN/1.73 eGFR NON- AMER. (test code = 84880) 52 ML/MIN/1.73 CALC BUN/CREAT (test code = 2235) 9 RATIO SODIUM (test code = 2231) 142 MEQ/L POTASSIUM (test code = 2228) 4.8 MEQ/L CHLORIDE (test code = 2215) 98 MEQ/L CARBON DIOXIDE (test code = 2206) 26 MEQ/L CALCIUM (test code = 2209) 9.9 MG/DL PROTEIN, TOTAL (test code = 2229) 7.0 G/DL ALBUMIN (test code = 2201) 4.4 G/DL CALC GLOBULIN (test code = 2240) 2.6 G/DL CALC A/G RATIO (test code = 2234) 1.7 RATIO BILIRUBIN, TOTAL (test code = 2207) 0.6 MG/DL ALKALINE PHOSPHATASE (test code = 2204) 136 U/L AST (test code = 2218) 76 U/L ALT (test code = 2219) 35 U/L Mulugeta CortezCBC W/AUTO [id number] 00:00:00* Test Item Value Reference Range Interpretation Comme nts WBC (test code = 1001) 8.7 K/UL RBC (test code = 1002) 4.43 M/UL HEMOGLOBIN (test code = 1003) 16.0 G/DL HEMATOCRIT (test code = 1004) 45.3 % MCV (test code = 1005) 102.3 fL MCH (test code = 1006) 36.1 PG MCHC (test code = 1007) 35.3 G/DL RDW (test code = 1038) 12.9 % NEUTROPHILS (test code = 1008) 68.6 % LYMPHOCYTES (test code = 1010) 18.6 % MONOCYTES (test code = 1011) 9.7 % EOSINOPHILS (test code = 1012) 1.7 % BASOPHILS (test code = 1013) 1.4 % PLATELET COUNT (test code = 1015) 286 K/UL Mulugeta Parikh [id number] 00:00:00* Test Item Value Reference Range Interpretation Comme nts AMYLASE (test code = 2205) 56 U/L Mulugeta F [id number] 00:00:00* Test Item Value Reference Range Interpretation Comme nts LIPASE (test code = 2058) 61 U/L Mulugeta F AustinCOMPREHENSIVE METABOLIC [id number] 00:00:00* Test Item Value Reference Range Interpretation Comme nts GLUCOSE (test code = 2217) 110 MG/DL BUN (test code = 2208) 10 MG/DL CREATININE (test code = 2214) 1.12 MG/DL eGFR AMER. (test cod e = 17020) 61 ML/MIN/1.73 eGFR NON- AMER. (test code = 01389) 52 ML/MIN/1.73 CALC BUN/CREAT (test code = 2235) 9 RATIO SODIUM (test code = 2231) 142 MEQ/L POTASSIUM (test code = 2228) 4.8 MEQ/L CHLORIDE (test code = 2215) 98 MEQ/L CARBON DIOXIDE (test code = 2206) 26 MEQ/L CALCIUM (test code = 2209) 9.9 MG/DL PROTEIN, TOTAL (test code = 2229) 7.0 G/DL ALBUMIN (test code = 2201) 4.4 G/DL CALC GLOBULIN (test code = 2240) 2.6 G/DL CALC A/G RATIO (test code = 2234) 1.7 RATIO BILIRUBIN, TOTAL (test code = 2207) 0.6 MG/DL ALKALINE PHOSPHATASE (test code = 2204) 136 U/L AST (test code = 2218) 76 U/L ALT (test code = 2219) 35 U/L Mulugeta Cortez History and Physical Notes Date/Time Note Provider Source 2023-10-16 08:34:26 Wendy Morales is a 68 year old female is patient interviewed and examined. Previous clinic note/ H&P reviewed dated 09/20/23 There is no change in ROS and physical examination, and initial assessment. Plan for Fiberoptic bronchoscopy and today in Endo suite. Pt questions appropriately answered. Pt already signed informed consent, which is in chart. Aubrey Wakefield MD Pulmonary & Critical Care PGY-5 LRY CASTING MODEL MAKER Associated attestation - Ric Padron DO - 10/16/2023 8:41 AM JEWELRY CASTING MODEL MAKER I agree with the fellow's note. Please see the fellow's note for additional details. Ric Padron DO Edi Architect Division of Pulmonary & Critical Care Medicine IM-PULMONARY DISEASE [facility] Notes Date/Time Note Provider Source Mulugeta Aguilar [facility]2024-06-26 00:00:00 Mulugeta Aguilar [facility]2024-05-28 00:00:00 Mulugeta Aguilar [facility]2024-01-25 14:26:38 Images from the original note were not included. RE: CT Thorax dated 09/24/2023. Per Dr. Johnson "Please let patient know that Ct scan did show some findings in the right middle lobe (blockage which may be due to mucus or some kind of lesion), we would like to do a bronchoscopy to further evaluate. If she needs we can schedule her in clinic prior to this to discuss further. I attempted to call her to discuss today but unable to reach her." Patient was advised of above results and recommendation per Dr. Johnson for flex bronch with airway inspection. Medications and Allergies reviewed. Requested patient have [facility] multimedia producer fax most recent H/P and lab work done within the past 12 months to [phone]. Reviewed the following instructions. Questions asked and answered. Unable to send via MyChart or email as she does not have access. Flex bronch with moderate sedation scheduled for Date: 10/02/22 [facility] Faculty: [place] Arrival time is 8am [facility] Interventional Pulmonology- Endoscopy Suite A bronchoscopy is a procedure that allows us to look into the airways of your lungs with a small flexible, lighted scope. This is an outpatient procedure. How Do I Prepare for the Procedure? Do NOT eat or drink anything after 12 midnight the night before the procedure. You may drink CLEAR liquids ONLY up to 2 hours before you arrive at the hospital (water, plain tea, black coffee, grape or apple juice- NO Milk or cream). out any changes. If you take any other medications, you may do so with a few sips of water. Nothing after 5am on the day of the procedure. Dress comfortably and leave valuables at home. Remove and leave Dentures at home. You must bring one adult family member or friend to drive you home, as you will be unable to drive that afternoon. There are no exceptions. On the day of the procedure, 1 Hour prior to procedure: Report to the Endoscopy Suite, 4th Floor of the Clinical Sciences Building adjacent to the [facility] ([facility]). Directions to the Endoscopy Suite: Park in [address] near the ER. After entering the lobby of the [facility] ([facility]), take hallway to the left of administrative assistant receptionist desk. Keep following the turns in the hallway until you get to the 1st set of elevators on your left. Take these to the 4th floor. Endoscopy Suite is on your right. Call ahead to the payroll clerk if you are running late: [phone]. Address: [facility] [employer] [facility]; [place]; [address] LRY CASTING MODEL MAKER Susi Persaud RNUTMB - [id number] 10:57:57 Spoke with Susi in regards to patient needing Bronchoscopy scheduled. She will be calling patient. LRY CASTING MODEL MAKER Kristie Wong [id number] 09:51:48 Discussed with patient, she states she was around her daughter at [place] time who had bronchitis and feels she has been developing the same. Her primary concern is a cough and chest tightness. She has been having a harder time catching her breath with activity. She does use home oxygen which is helpful. She was using about 2-2.5 L oxygen and has gone up to 3 L NC. She still has been using her prescribed inhalers. When her breathing is bad, she switches to the nebulized form of albuterol which has been helping to relieve her shortness of breath. Patient has been scheduled for 09/20/23. She feels okay to wait for the appointment in 1 week. She does not sound to be in any distress on the phone. ER precautions discussed. No further questions. ORY Pinto [id number] 16:55:35 Wendy Morales is a 68 year old female Pt calling she is scheduled with on 11/29/23 pt requesting a sooner appt. And to speak with a nurse. She is currently having Breathing issues coughing, can't breath on excertion pt gets shortness of breath since around [place]. Please advise [facility]Y [id number] 10:05:50 Spoke with patient. She states that Dr. Johnson is out of network or she doesn't have an active referral so the [facility] pharmacy has been unable to fill her prescriptions. She was told by her PCP Dr. Chicas that she would take over her prescriptions so that her prescriptions can be filled at [facility] pharmacy. She states that the [facility] pharmacy is more affordable. Faxed Dr. Johnson's note and medications list to [facility] Attn: Dr. Chicas. Patient is currently taking: Spiriva, Symbicort, azythromycin, and Albuterol rescue inhaler. She has been using the nebulizer treatments that she has at home since her inhalers have been out. Brooke Pinto [place] [id number] 16:56:54 Attempted to return call to patient. Left another voicemail asking patient to return call. Would like to assist patient with refill but would like to clarify is Dr. Chicas going to send new prescription for her? [place] [id number] 16:52:45 Attempted to contact patient for clarification. LVM advising patient to call back. Need to know if she needs us to send her records to Dr. Chicas that he can take over care and management of medications? Prescriptions are already being sent to [facility] pharmacy in [place]. She should have refills of Symbicort available at pharmacy. [place] [id number] 10:47:29 Wendy Morales is a 68 year old female Patient calling requesting a paper copy of the prescriptions sent by Dr. Johnson to her primary care physician, Dr. Chicas. Dr. Chicas will help with prescriptions at [facility] as patient states Dr. Johnson is not in network and [facility] provides affordable medications. Please advise. Patient is out of several medications including: inhaler, SYMBICORT, PROAIR. Dr. Chicas T: [phone] (ask for [place] location) [facility] - [address] [place] [id number] 08:31:36 Forms from [facility]. Placed in provider's box. Jose [facility]
[2024-04-29] MEDS ORDERED: ETOMIDATE 20 MG/10 ML VIAL IV ONE (21:15)
[2024-04-29] MEDS ORDERED: KETOROLAC 30 MG/ML INJ ONE (21:15)
[2024-04-29] MEDS ORDERED: MIDAZOLAM HCL 2 MG/2 ML INJ ONE (21:16)
[2024-04-29] MEDS ORDERED: METOCLOPRAMIDE 10 MG/2mL INJ ONE (21:16)
[2024-04-29 21:17] LABS: Absolute Basophils 0.1 K/uL (0-0.5); Absolute Eosinophils 0.2 K/uL (0-0.5); Absolute Lymphocytes (CBC) 2.9 K/uL (0.7-4.9); Absolute Monocytes 0.8 K/uL (0.1-1.3); Absolute Neutrophil 4.6 K/uL (1.8-8.0); Basophils % 1.3 % (0-1.3); Eosinophils % 2.7 % (0-4.4); Hematocrit 39.7 % (36.0-45.0); Lymphocytes % 33.6 % (15.3-44.8); MCH 31.4 pg (27.0-35.0); MCHC 32.7 g/dL (32.0-36.0); MCV 95.9 fL (80-100); MPV 6.6 fL (7.6-11.3); Monocytes % 9.2 % (3.3-12.3); Neutrophils % 53.2 % (41.7-73.7); Nucleated Red Blood Cells % 0.1 % (0-0); Platelets 302 thou/uL (152-406); RBC Red Blood Cell Count 4.14 M/uL (3.86-4.86); Red Cell Distribution Width 13.7 % (12.1-15.2)
[2024-04-29] MEDS ORDERED: TDAP (DIPHTH,PERTUSS(ACELL),TET VAC) 0.5 ML VIAL IMVAC ONE (21:17)
[2024-04-29] MEDS ORDERED: NA CHLORIDE 0.9% 1,000 ML ONE (21:17)
[2024-04-29] MEDS ORDERED: FENTANYL CITR 100 MCG/2 ML ONE (21:43)
[2024-04-29 21:51] LABS: Albumin 3.5 g/dL (3.4-5.0); Anion Gap 11.6 mEq/L (5.0-15.0); Bilirubin Total 0.2 mg/dL (0.2-1.0); Globulin 3.4 g/dL (2.3-3.5); Potassium 3.6 mEq/L (3.5-5.1); Protein, Total 6.9 g/dL (6.4-8.2)
--- NOTE | 2024-04-29 22:13 | RAD REPORT ---
EXAM DESCRIPTION: RAD - Forearm Left - 04/29/2024 9:47 pm CLINICAL HISTORY: Left forearm pain status post injury FINDINGS: Impacted moderately displaced distal radial fracture. Angulation present at fracture site. Avulsion fracture ulnar styloid process No dislocation is seen
--- NOTE | 2024-04-29 23:52 | ER ---
Nurse's Notes [facility] Name: Wendy Morales Age: 69 yrs Sex: Female : 1955 Arrival Date: 04/29/2024 Time: 20:47 Bed 2 Private MD: Diagnosis: Fall on same level, unspecified;Colles' fracture of left radius-displaced, reduced;Displaced fracture of left ulna styloid process Presentation: 04/29 20:57 Chief complaint: Patient states: she tripped over her puppy and fell onto her left kc6 wrist. obvious deformity noted in triage. no blood thinners, no LOC. Coronavirus screen: At this time, the client does not indicate any symptoms associated with coronavirus-19. Ebola Screen: No symptoms or risks identified at this time. Initial Sepsis Screen: Does the patient meet any 2 criteria? No. Patient's initial sepsis screen is negative. Does the patient have a suspected source of infection? No. Patient's initial sepsis screen is negative. Risk Assessment: Do you want to hurt yourself or someone else? Patient reports no desire to harm self or others. Onset of symptoms was April 29, 2024. 20:57 Method Of Arrival: Ambulatory [facility] 20:57 Acuity: MYRNA 2 kc6 Triage Assessment: 20:50 General: Appears uncomfortable, Behavior is anxious, crying, restless. Pain: Complains ha1 of pain in left wrist Pain does not radiate. Pain currently is 10 out of 10 on a pain scale. Quality of pain is described as sharp, shooting, throbbing, Pain began suddenly, Is continuous. Neuro: Level of Consciousness is awake, alert, obeys commands, Oriented to person, place, time, situation. Cardiovascular: Capillary refill < 3 seconds Patient's skin is warm and dry. Respiratory: Airway is patent Respiratory effort is even, unlabored, Respiratory pattern is regular, symmetrical. GI: Abdomen is flat, non-distended. Injury Description: Deformity sustained to left wrist is dislocated. 20:58 Musculoskeletal: Bony deformity noted of left hand. [facility] Historical: - Allergies: 20:58 No Known Allergies; kc6 - PMHx: 20:58 Hypertensive disorder; Hypothyroidism; Anxiety; Depressive disorder; blood clots; kc6 - PSHx: 20:58 None; kc6 - Immunization history:: Adult Immunizations up to date. - Infectious Disease History:: Denies. - Social history:: Smoking status: Patient reports the use of cigarette tobacco products, smokes one-half pack cigarettes per day. Screenin:50 Abuse screen: Denies threats or abuse. Denies injuries from another. ha1 20:50 [facility] ED Fall Risk Assessment (Adult) History of falling in the last 3 months, ha1 including since admission No falls in past 3 months (0 pts) Confusion or Disorientation No (0 pts) Intoxicated or Sedated No (0 pts) Impaired Gait Yes (1 pt) Mobility Assist Device Used No (0 pt) Altered Elimination No (0 pt) Score/Fall Risk Level 0 - 2 = Low Risk Oriented to surroundings, Maintained a safe environment, Educated pt \T\ family on fall prevention, incl call for assistance when getting out of bed, Hourly rounding (assess needs \T\ fall precautionary measures) done. Nutritional screening: No deficits noted. Tuberculosis screening: No symptoms or risk factors identified. Assessment: 20:50 Reassessment: see triage assessment. ha1 23:00 Reassessment: Patient and/or family updated on plan of care and expected duration. Pain ha1 level reassessed. Patient is alert, oriented x 3, equal unlabored respirations, skin warm/dry/pink. 04/30 00:00 Reassessment: Patient and/or family updated on plan of care and expected duration. Pain ha1 level reassessed. Patient is alert, oriented x 3, equal unlabored respirations, skin warm/dry/pink. 00:00 Reassessment: see floating sheet for more vital signs. ha1 Vital Signs: 04/29 20:57 BP 91 / 73; Pulse 65; Resp 16 S; Temp 97.5(O); Pulse Ox 98% on R/A; Weight 56.7 kg (R); kc6 Height 5 ft. 5 in. (R); Pain 10/10; 21:40 BP 94 / 69; Pulse 83; Resp 17 S; Pulse Ox 97% on R/A; ha1 22:20 BP 97 / 65; Pulse 81; Resp 17 S; Pulse Ox 100% on R/A; ha1 23:00 BP 96 / 66; Pulse 79; Resp 17 S; Pulse Ox 100% on R/A; ha1 04/30 00:00 BP 116 / 78; Pulse 77; Resp 17 S; Pulse Ox 100% on R/A; ha1 04/29 20:57 Body Mass Index 20.80 (56.70 kg, 165.1 cm) [facility] 04/29 20:57 Pain Scale: Adult [facility] ED Course: 04/29 20:49 Patient arrived in ED. ra3 20:50 Ruth Pérez FNP-C is [facility] kb 20:50 Esa Kilgore MD is Attending Physician. kb 20:50 Patient has correct armband on for positive identification. Placed in gown. Bed in low ha1 position. Call light in reach. Side rails up X2. Adult w/ patient. 20:55 Esa Kilgore MD is Attending Physician. [facility] 20:58 Triage completed. [facility] 20:58 Arm band placed on. [facility] 21:11 Pillow given. kmf 21:11 Inserted saline lock: 20 gauge in right forearm, using aseptic technique. Blood kmf collected. Flushed with 10 mL NS. 21:12 Comprehensive Metabolic Panel Sent. kmf 21:12 CBC with Diff Sent. kmf 21:12 Initial lab(s) drawn, by ok, sent to lab. kmf 21:15 Ice pack to injury. kmf 21:38 Pamela Plascencia, RN is Primary Nurse. ha1 21:49 Forearm Left XRAY In Process Unspecified. EDMS 23:40 Assisted provider with: conscious sedation. ha1 23:51 Branden Beaulieu MD is Referral Physician. [facility] 04/30 00:00 Provided Education on: following up with orthopedic . ha1 00:00 IV discontinued, intact, bleeding controlled, No redness/swelling at site. Pressure ha1 dressing applied. 00:14 Wrist Left 2 View In Process Unspecified. EDMS 00:16 Orthoglass splint: Sugar tong splint applied on left arm. Sling applied to left arm. oe Administered Medications: 04/29 21:20 Drug: Ketorolac IVP 30 mg IVP once Route: IVP; Site: right forearm; ha1 21:50 Follow up: Response: No adverse reaction; Pain is unchanged, physician notified ha1 21:22 Drug: metoCLOPramide IVP 10 mg IVP once; over 1 to 2 minutes Route: IVP; Site: right ha1 forearm; 21:50 Follow up: Response: No adverse reaction ha1 21:39 Drug: Boostrix Tdap IM 0.5 ml IM once; as a single dose Route: IM; Site: right deltoid; ha1 22:00 Follow up: Response: (VIS) Vaccine information sheet provided today. Questions and/or ha1 concerns addressed. VIS edition date: Apr 08, 2021.; No adverse reaction 21:40 Drug: NS 0.9% IV 1000 ml IV at 1 bolus Per protocol; 1000 mL bolus Route: IV; Rate: 1 ha1 bolus; Site: right forearm; 04/30 00:00 Follow up: Response: No adverse reaction; IV Status: Completed infusion; IV Intake: ha1 1000ml 04/29 21:46 Drug: fentaNYL (PF) IVP 25 mcg IVP once Route: IVP; Site: right forearm; ha1 22:00 Follow up: Response: No adverse reaction; Pain is decreased; RASS: Alert and Calm (0) 23:35 Drug: Midazolam IVP or IV 2 mg IVP once; hold Route: IVP; Site: right wrist; ha1 04/30 00:00 Follow up: Response: No adverse reaction; RASS: Alert and Calm (0) 1 04/29 23:40 Drug: Midazolam IVP or IV 2 mg IVP once; hold Route: IVP; Site: right wrist; ha1 04/30 00:00 Follow up: Response: No adverse reaction 1 04/29 23:42 Drug: Etomidate IVP 10 mg IVP once; hold Route: IVP; Site: right wrist; ha1 04/30 00:00 Follow up: Response: No adverse reaction; RASS: Alert and Calm (0) ha1 00:21 Not Given (Physician Discretion): [id number] mg IVP once; hold ha1 Medication: 00:00 VIS not applicable for this client. ha1 Intake: 00:00 IV: 1000ml; Total: 1000ml. ha1 Outcome: 04/29 23:51 Discharge ordered by MD. walker 04/30 00:20 Discharged to home via wheelchair, with family, ha1 00:20 Condition: stable ha1 00:20 Discharge instructions given to patient, family, Instructed on discharge instructions, follow up and referral plans. medication usage, Demonstrated understanding of instructions, follow-up care, medications, splint care, Prescriptions given X 3, 00:23 Patient left the ED. ha1 Signatures: Dispatcher [employer] EDRuth Sy, E COMMERCE SPECIALIST-C E COMMERCE SPECIALIST-Esa Reyes MD MD cha Espinosa, Orlando oe Ayala, Heidy RN RN ha1 Kinjal Cano RN RN kc6 [facility] Tamara Greenberg 3 Corrections: (The following items were deleted from the chart) 06:32 00:00 Response: No adverse reaction ha1 ha1
--- NOTE | 2024-04-29 23:52 | EDPHYS ---
Physician Documentation [facility] Name: Wendy Morales Age: 69 yrs Sex: Female : 1955 Arrival Date: 04/29/2024 Time: 20:47 Bed 2 Private MD: VI Physician Esa Kilgore HPI: 04/29 21:03 This 69 yrs old Female presents to ER via Ambulatory with complaints of Wrist denise Injury. 21:03 The patient or guardian reports decreased range of motion, deformity, pain. The denise complaints affect the left wrist diffusely. Context: The problem was sustained at home. Onset: The symptoms/episode began/occurred just prior to arrival. Modifying factors: The symptoms are alleviated by nothing, holding still, the symptoms are aggravated by movement, dependent position. Associated signs and symptoms: The patient has no apparent associated signs or symptoms. Compartment Syndrome negative for numbness, tingling. The patient has not experienced similar symptoms in the past. Historical: - Allergies: 20:58 No Known Allergies; kc6 - PMHx: 20:58 Hypertensive disorder; Hypothyroidism; Anxiety; Depressive disorder; blood clots; kc6 - PSHx: 20:58 None; kc6 - Immunization history:: Adult Immunizations up to date. - Infectious Disease History:: Denies. - Social history:: Smoking status: Patient reports the use of cigarette tobacco products, smokes one-half pack cigarettes per day. ROS: 21:03 Constitutional: Negative for fever, chills, and weight loss, Eyes: Negative for injury, denise pain, redness, and discharge, ENT: Negative for injury, pain, and discharge, Neck: Negative for injury, pain, and swelling, Cardiovascular: Negative for chest pain, palpitations, and edema, Respiratory: Negative for shortness of breath, cough, wheezing, and pleuritic chest pain, Abdomen/GI: Negative for abdominal pain, nausea, vomiting, diarrhea, and constipation, Back: Negative for injury and pain, : Negative for injury, bleeding, discharge, and swelling, Skin: Negative for injury, rash, and discoloration, Neuro: Negative for headache, weakness, numbness, tingling, and seizure, Psych: Negative for depression, anxiety, suicide ideation, homicidal ideation, and hallucinations, Allergy/Immunology: Negative for hives, rash, and allergies, Endocrine: Negative for neck swelling, polydipsia, polyuria, polyphagia, and marked weight changes, Hematologic/Lymphatic: Negative for swollen nodes, abnormal bleeding, and unusual bruising, 21:03 MS/extremity: Positive for injury or acute deformity, decreased range of motion, pain, swelling, tenderness, of the left wrist, Exam: 21:03 Constitutional: This is a well developed, well nourished patient who is awake, alert, denise and in no acute distress. Head/Face: Normocephalic, atraumatic. Eyes: Pupils equal round and reactive to light, extra-ocular motions intact. Lids and lashes normal. Conjunctiva and sclera are non-icteric and not injected. Cornea within normal limits. Periorbital areas with no swelling, redness, or edema. ENT: Nares patent. No nasal discharge, no septal abnormalities noted. Tympanic membranes are normal and external auditory canals are clear. Oropharynx with no redness, swelling, or masses, exudates, or evidence of obstruction, uvula midline. Mucous membranes moist. Neck: Trachea midline, no thyromegaly or masses palpated, and no cervical lymphadenopathy. Supple, full range of motion without nuchal rigidity, or vertebral point tenderness. No Meningismus. Chest/axilla: Normal chest wall appearance and motion. Nontender with no deformity. No lesions are appreciated. Cardiovascular: Regular rate and rhythm with a normal S1 and S2. No gallops, murmurs, or rubs. Normal PMI, no JVD. No pulse deficits. Respiratory: Lungs have equal breath sounds bilaterally, clear to auscultation and percussion. No rales, rhonchi or wheezes noted. No increased work of breathing, no retractions or nasal flaring. Abdomen/GI: Soft, non-tender, with normal bowel sounds. No distension or tympany. No guarding or rebound. No evidence of tenderness throughout. Back: No spinal tenderness. No costovertebral tenderness. Full range of motion. Female : Normal external genitalia. Skin: Warm, dry with normal turgor. Normal color with no rashes, no lesions, and no evidence of cellulitis. Neuro: Awake and alert, GCS 15, oriented to person, place, time, and situation. Cranial nerves II-XII grossly intact. Motor strength 5/5 in all extremities. Sensory grossly intact. Cerebellar exam normal. Normal gait. Psych: Awake, alert, with orientation to person, place and time. Behavior, mood, and affect are within normal limits. 21:03 Musculoskeletal/extremity: Extremities: grossly normal except: noted in the left wrist: decreased ROM, pain, swelling, tenderness, Vital Signs: 20:57 BP 91 / 73; Pulse 65; Resp 16 S; Temp 97.5(O); Pulse Ox 98% on R/A; Weight 56.7 kg (R); kc6 Height 5 ft. 5 in. (R); Pain 10/10; 21:40 BP 94 / 69; Pulse 83; Resp 17 S; Pulse Ox 97% on R/A; ha1 22:20 BP 97 / 65; Pulse 81; Resp 17 S; Pulse Ox 100% on R/A; ha1 23:00 BP 96 / 66; Pulse 79; Resp 17 S; Pulse Ox 100% on R/A; ha1 04/30 00:00 BP 116 / 78; Pulse 77; Resp 17 S; Pulse Ox 100% on R/A; ha1 04/29 20:57 Body Mass Index 20.80 (56.70 kg, 165.1 cm) [facility] 04/29 20:57 Pain Scale: Adult [facility] Procedures: 04/29 21:07 Reduction: of the left wrist, using traction, manipulation, flexion, Immobilized with [facility] OCL splint, Patient tolerated well. Post reduction film - reveals improved alignment. MDM: 20:50 Patient medically screened. 20:59 Patient medically screened. [facility] 21:05 Differential diagnosis: closed fracture, contusion. Data reviewed: vital signs, nurses [facility] notes, radiologic studies. Consideration of Admission/Observation Escalation of care including admission/observation considered. I considered the following discharge prescriptions or medication management in the emergency department Medications were administered in the Emergency Department. See MAR. Independent interpretation of the following test(s) in the Emergency Department X-Ray: My interpretation is wrist. Care significantly affected by the following chronic conditions: Hypertension, blood clots, anxiety, depression. 21:07 Test considered but Not performed: CT: no ct wrist. [facility] 04/29 21:01 Order name: CBC with Diff [facility] 04/29 21:01 Order name: Comprehensive Metabolic Panel [facility] 04/29 20:53 Order name: Forearm Left XRAY 04/30 00:11 Order name: Wrist Left 2 View EDMS 04/29 21:01 Order name: Wound Care; Complete Time: 00:20 [facility] 04/29 21:01 Order name: Splint - Sugar Tong - Forearm; Complete Time: 00:13 [facility] 04/29 21:01 Order name: Ice pack; Complete Time: 21:38 [facility] Administered Medications: 21:20 Drug: Ketorolac IVP 30 mg IVP once Route: IVP; Site: right forearm; ha1 21:50 Follow up: Response: No adverse reaction; Pain is unchanged, physician notified 21:22 Drug: metoCLOPramide IVP 10 mg IVP once; over 1 to 2 minutes Route: IVP; Site: right ha1 forearm; 21:50 Follow up: Response: No adverse reaction 21:39 Drug: Boostrix Tdap IM 0.5 ml IM once; as a single dose Route: IM; Site: right deltoid; 1 22:00 Follow up: Response: (VIS) Vaccine information sheet provided today. Questions and/or [facility] concerns addressed. VIS edition date: Apr 08, 2021.; No adverse reaction 21:40 Drug: NS 0.9% IV 1000 ml IV at 1 bolus Per protocol; 1000 mL bolus Route: IV; Rate: 1 ha1 bolus; Site: right forearm; 04/30 00:00 Follow up: Response: No adverse reaction; IV Status: Completed infusion; IV Intake: ha1 1000ml 04/29 21:46 Drug: fentaNYL (PF) IVP 25 mcg IVP once Route: IVP; Site: right forearm; 1 22:00 Follow up: Response: No adverse reaction; Pain is decreased; RASS: Alert and Calm (0) 23:35 Drug: Midazolam IVP or IV 2 mg IVP once; hold Route: IVP; Site: right wrist; 04/30 00:00 Follow up: Response: No adverse reaction; RASS: Alert and Calm (0) 04/29 23:40 Drug: Midazolam IVP or IV 2 mg IVP once; hold Route: IVP; Site: right wrist; 04/30 00:00 Follow up: Response: No adverse reaction [facility] 04/29 23:42 Drug: Etomidate IVP 10 mg IVP once; hold Route: IVP; Site: right wrist; 04/30 00:00 Follow up: Response: No adverse reaction; RASS: Alert and Calm (0) ha1 00:21 Not Given (Physician Discretion): mg IVP once; hold ha1 Disposition Summary: 04/29/24 23:51 Discharge Ordered Notes: Location: Home denise Problem: new denise Symptoms: have improved denise Condition: Stable denise Diagnosis - Fall on same level, unspecified denise - Colles' fracture of left radius - displaced, reduced denise - Displaced fracture of left ulna styloid process denise Followup: denise - With: Private Physician - When: 2 - 3 days - Reason: Recheck today's complaints, Continuance of care, Re-evaluation by your physician Followup: denise - With: Branden Beaulieu MD - When: 2 - 3 days - Reason: Recheck today's complaints, Re-evaluation by your physician Discharge Instructions: - Discharge Summary Sheet denise - Abrasion denise - Colles Fracture denise - Abrasion, [id number] [facility] Forms: - Medication Reconciliation Form [facility] - Antibiotic Education denise - Prescription Opioid Use denise - Patient Portal Instructions [facility] - Leadership Thank You Letter [facility] Prescriptions: - acetaminophen-codeine 300-30 mg Oral tablet - take 2 tablet ORAL route every 6 hours as needed for pain; 24 tablet; Refills: denise 0, Product Selection Permitted - diclofenac sodium 50 mg Oral tablet, delayed release (enteric coated) - take 1 tablet ORAL route 3 times per day; 21 tablet; Refills: 0, Product denise Selection Permitted - ondansetron 4 mg Oral Tablet,disintegrating - take 1 tablet ORAL route every 6 to 8 hours for 5 days; 20 tablet; Refills: 0, [facility] Product Selection Permitted Signatures: Dispatcher [employer] EDMS Ruth Pérez, [employer]-C [employer]-Esa Reyes MD MD cha Ayala, Heidy RN RN ha1 Kinjal Cano RN RN kc6 Corrections: (The following items were deleted from the chart) 04/29 21:01 21:01 CBC+H.LAB.BRZ ordered. EDMS EDMS 21:01 21:01 COMPREHENSIVE METABOLIC PANEL+C.LAB.BRZ ordered. EDMS EDMS 21:58 21:02 Wrist Left 3 View+RAD.RAD.BRZ ordered. EDHI EDMS
[2024-04-30 01:50] VITALS: TEMP 97.5
[2024-04-30 02:00] VITALS: BP 94/69; O2SAT 97
--- NOTE | 2024-04-30 11:26 | RAD REPORT ---
EXAM DESCRIPTION: RAD - Wrist Left 2 View - 04/30/2024 6:17 am CLINICAL HISTORY: Post reduction. COMPARISON: Report only for the left forearm radiographs from today. Images not available at this ti ca. TECHNIQUE: 2 views of the left wrist were obtained: PA and lateral radiographs. FINDINGS: Acute mildly impacted distal radius fracture. Neutral angulation at the radial articular s urface. Acute displaced fracture at the tip of the ulnar styloid process. For evaluation of the scaph oid due to overlapping structures. No scapholunate interval widening. Ulnar neutral variance. Vinceroun ding splint/cast material. IMPRESSION: Acute mildly impacted distal radius fracture. Acute ulnar styloid process avulsion fract ure. Electronically signed by: Marisela Mosley MD 04/30/2024 12:35 AM CDT RP Due to temporary technical issues with the PACS/Fluency reporting system, reports are being signed by the in house radiologist without review as a courtesy to ensure prompt reporting. The interpreting r adiologist is fully responsible for the content of the report.
== END 2024-04-30 00:23 | disposition home or self-care (01) ==
LOC: ER 20:47
DX: S52.532A Colles' fracture of left radius, initial encounter for closed fracture (principal); S52.612A Displaced fracture of left ulna styloid process, initial encounter for closed fracture; W18.30XA Fall on same level, unspecified, initial encounter; F17.210 Nicotine dependence, cigarettes, uncomplicated
CPT/HCPCS: 85025; 36415; 80053; 73090; 73100; 96372; 99284; 25605; J2765; J2250; J3010; J7030

== ENCOUNTER 2024-05-09 05:18 | Day surgery (SDC) | payer OTHER ==
[2024-05-09] MEDS: Ringers Lactate 1,000 ML IV ONE (05:53)
[2024-05-09] MEDS ORDERED: dexAMETHasone 10 MG/ML VIAL ONE ×2 (06:09→06:52)
[2024-05-09] MEDS ORDERED: FENTANYL CITR 100 MCG/2 ML ONE (06:10)
[2024-05-09] MEDS ORDERED: LIDOCAINE 1% MPF 5 ML VIAL ONE (06:10)
[2024-05-09] MEDS ORDERED: MIDAZOLAM HCL 2 MG/2 ML INJ ONE (06:10)
[2024-05-09] MEDS ORDERED: EPINEPHRINE 1 MG/ML VIAL ONE (06:10)
[2024-05-09] MEDS ORDERED: LIDOCAINE 2% MPF 5 ML VIAL ONE (06:52)
[2024-05-09] MEDS ORDERED: propofoL 200 MG/20 ML VIAL IV ONE (06:52)
[2024-05-09] MEDS ORDERED: ONDANSETRON 4 MG/2 ML VIAL ONE (06:52)
[2024-05-09] MEDS ORDERED: KETOROLAC 30 MG/ML INJ ONE (06:52)
[2024-05-09] MEDS: CEFAZOLIN SODIUM 1 GM/VIAL ONE (07:00)
[2024-05-09] MEDS ORDERED: Ringers Lactate 1,000 ML IV ONE (08:08)
[2024-05-09] MEDS ORDERED: HYDROCODONE/APAP 5/325 MG TAB ONE (08:55)
[2024-05-09] MEDS: HYDROCODONE/APAP 5/325 MG TAB PO ONE (08:57)
--- NOTE | 2024-05-09 09:36 | OP ---
Date of Procedure: 05/09/2024 Surgeon: Branden Beaulieu MD Preoperative Diagnosis: Left two-part intra-articular distal radius fracture. Postoperative Diagnosis: Left two-part intra-articular distal radius fracture. Procedure Performed: Left two-part distal radius intra-articular fracture open reduction and interna l fixation using Acumed volar radius plating set. Estimated Blood Loss: Less than 10 cc. Complications: There were no complications. Specimens: No pathology specimens sent. Indications For Operation: Ms. Morales is a 69-year-old female, who unfortunately fell injuring her le ft upper extremity. She was seen and examined at an outside facility, where she was found to have a highly displaced unstable type of distal radius fracture. She underwent closed reduction, which did improve her reduction quite a bit, but unfortunately, repeat x-rays demonstrated that she has lost qu ite a bit of the reduction and risks, benefits, and alternatives of different methods of treating thi s including continued closed management using casting versus open reduction and internal fixation and other procedure have been discussed with her. She selects open reduction and internal fixation and agrees to proceed. Description Of Procedure: The patient was taken to the operating room and placed in supine position. General anesthesia was easily obtained by Anesthesia staff. Following this, a well-padded tourniqu et was placed on superior left arm. Left upper extremity was then prepped and draped in usual steril e fashion for procedure. Following this, she had some complaints of pain in her thumb when she was i n her splint, although she said that this pain had cleared by today; however, her thumb was examined and does appear to be slightly waxed with 20 degrees of metacarpophalangeal flexion with regard to st ress testing of the ulnar collateral ligament. The contralateral limb was then examined and was foun d to also be essentially symmetric and does have an endpoint. It was felt that this was probably nor mal for this patient who is 69 before the injury and decision was made to continue with distal radius . The arm was then elevated, but not exsanguinated, and the tourniquet was raised. A standard volar approach to injury was then taken down carefully through skin only. Meticulous hemostasis being isidro ntained using bipolar electrocautery. This was followed by localization of the flexor carpi radialis which was then retracted radialward to protect the radial artery. After this, the underlying sheath was exploited and the muscle belly and tendon of the flexor pollicis longus was then gently retracte d ulnarward to protect the median nerve. This leads down to the pronator quadratus, which was then d ivided at its midsubstance and the volar surface of the radius was then exposed using a wood handle e levator. The fracture was seen. It was highly displaced. Closed reduction maneuver plus the additi on of a [place] elevator then used to reduce this fracture and a narrow volar plate was selected. It w as felt to be out the length and at least acceptably reduced. It may like a little volar inclination due to comminution, but appears to be very well placed and the volar radius plate was then applied t hrough the slot hole, advanced and adjusted appropriately. It was held in a position of reduction an d ulnar deviation as the locking pegs are then placed in the distal aspect. This was followed by felicitas cement of another proximal screw. The screws had excellent bites, so decision was not to place the m ost proximal screw because this does align a little bit with the radial aspect of the cortex. It was felt that these screws were holding very well and placing another screw in this area may weaken the radius at its most distal aspect in this patient with fracture following and decision was made to jenna ve this open. After this, the skin was then closed using nylon suture. She was placed in a well-pad ded sterile dressing as well as a volar splint and awakened and taken to recovery room in good condit ion. /AXEL Voice ID: [id number] Report ID: [id number]
[2024-05-09 09:38] VITALS: BP 115/81; TEMP 97
[2024-05-09 09:54] VITALS: O2SAT 95
--- NOTE | 2024-05-09 14:07 | EKG ---
Test Date: 2024-05-08 Test Time: 15:28:33 Velocity Shooter: ADRIEL MEASUREMENT RESULTS: Intervals: Rate: 68 HI: 160 QRSD: 106 QT: 416 QTc: 442 [place]: P: 79 HI: 160 QRS: 80 T: 76 INTERPRETIVE STATEMENTS: Normal sinus rhythm Incomplete right bundle branch block Borderline ECG No previous ECG available for comparison Electronically Signed On 05-09-24 14:06:12 CDT by Raudel Reed
--- NOTE | 2024-05-09 19:48 | RAD REPORT ---
EXAM DESCRIPTION: RAD - Fluoroscopy <1 Hour - 05/09/2024 1:03 pm CLINICAL HISTORY: ORIF LT WRIST COMPARISON: None available. FINDINGS: Fourteen Images were sent to PACS, documenting fluoroscopy use during an image guided left wrist over reduction and internal fixation. No radiologist was available for the procedure, nor will any image interpretation he provided. Please refer to the procedural report for additional details. Fluoroscopy time: 0.9 Minutes. IMPRESSION: Documentation of fluoroscopy utilization as above.
== END 2024-05-09 09:36 | disposition home or self-care (01) ==
LOC: OR 05:18
PROVIDERS: ATTEND Orthopaedic Surgery
PROC: 0PSJ04Z Reposition Left Radius with Internal Fixation Device, Open Approach (ICD-10-PCS; principal; 2024-05-09 07:00)
DX: S52.572A Other intraarticular fracture of lower end of left radius, initial encounter for closed fracture (principal)
CPT/HCPCS: 93005; 25608; J2704; J2001 ×2; J2250; J3010; J1100 ×2; J0171; J2405; J7120; J0690; C1713 ×3; C1889; 76000